=== PATIENT | male | born 1975 | race Caucasian/White ===

== ENCOUNTER 2019-06-13 11:04 | Emergency (ER) | payer BC, SELFPAY ==
--- NOTE | 2019-06-13 11:00 | ECG_ITS ---
APPROVED REPORT Exam: Resting ECG HR:76 bpm ECG Measurements Heart Rate 76 AXES MT 162 P 50 QRSd 76 QRS 24 QT 386 T 26 QTc 434 <Conclusion> Normal sinus rhythm Normal ECG Electronically signed by : Aditya Aguilera, 06/14/2019 08:05:49
[2019-06-13 11:05] VITALS: BP 132/97; PULSE 87; RESP 18; TEMP 36.8; O2SAT 99; BMI 30.5
--- NOTE | 2019-06-13 11:07 | HMH.EDGENADL ---
ED Disposition Clinical Impression: Chest pain Qualifiers: Chest pain type: unspecified Qualified Code(s): R07.9 - Chest pain, unspecified Disposition: Home, Self-Care Condition on Discharge: Good Instructions: DI for Chest Pain Additional Instructions: Additional instructions for CHEST PAIN: Follow-up with Dr. Walker in the office for further evaluation. Call tomorrow to arrange appointment. Return immediately if worsening chest pain, vomiting, shortness of breath, fever, coughing of blood. Referrals: Provider,MD Bren [Primary Care Provider] - Dario Walker MD [Staff Physician] - - Critical Care Critical Care Time: No Attestation: On , the high probability of a clinically significant, sudden or life threatening deterioration of the following system(s) required my full and direct attention, intervention and personal management. The time I documented below is in addition to time spent performing reported procedures but includes the following listed in this critical care notation. Medical Decision Making - Medical Records Medical records reviewed: Yes: I reviewed the patient's medical records. - Brain Inquiry Pt receiving controlled substance: No Vital Signs: 06/13/19 11:05 06/13/19 11:44 06/13/19 12:21 Temperature 98.3 F Temperature Source Oral Pulse Rate [Left Radial] 87 70 68 Respiratory Rate 18 Blood Pressure [Right Arm] 132/97 H 135/102 H 113/76 Blood Pressure Mean [Right Arm] 108 113 88 Blood Pressure Source [Right Arm] Automatic Cuff Automatic Cuff Blood Pressure Position [Right Arm] Sitting Sitting Sitting 02 Sat by Pulse Oximetry 99 96 98 Oxygen Delivery Method Room Air Room Air Room Air 06/13/19 14:26 06/13/19 14:30 Temperature Temperature Source Pulse Rate [Left Radial] 72 81 Respiratory Rate Blood Pressure [Right Arm] 122/74 118/72 Blood Pressure Mean [Right Arm] 90 87 Blood Pressure Source [Right Arm] Automatic Cuff Automatic Cuff Blood Pressure Position [Right Arm] Sitting Sitting 02 Sat by Pulse Oximetry 98 98 Oxygen Delivery Method Room Air Room Air - Lab Data Lab results reviewed: Yes: I reviewed the patient's lab results. Lab Results 06/13/19 11:05: WBC 5.4, RBC 4.51 L, Hgb 13.5 L, Hct 41.6 L, MCV 92.2, MCH 29.9, MCHC 32.4, RDW 13.8, Plt Count 243, MPV 7.7, Neut % (Auto) 70.8, Lymph % (Auto) 21.7, [place] % (Auto) 5.6, Eos % (Auto) 1.1, Baso % (Auto) 0.8, Neut # (Auto) 3.8, Lymph # (Auto) 1.2, Alpine # (Auto) 0.3, Eos # (Auto) 0.1, Baso # (Auto) 0.0 06/13/19 11:05: Sodium 138, Potassium 4.1, Chloride 100, Carbon Dioxide 29, Anion Gap 13.1, BUN 21 H, Creatinine 0.90, Estimated Creat Clear 150, Estimated GFR 91, Est GFR ( Amer) 110, Glucose 136 H, Calcium 9.9, Troponin I < 0.01 06/13/19 11:05: D-Dimer < 100 06/13/19 14:15: Troponin I < 0.01 Result diagrams: 06/13/19 11:05 06/13/19 11:05 Orders (Tests/Meds): ORDERS Category Date Time Status Troponin I Q3H Lab 06/13/19 17:15 Ordered - Radiology Data #1 Image(s): Chest Image Reviewed: Yes I reviewed the patient's radiology image, Yes I have reviewed radiologist's interpretation Preliminary Findings: Normal/NAD PROCEDURE: XR CHEST 2V CLINICAL HISTORY: chest pain COMPARISON: [id number] XR ribs RT min 3V w CXR1V from 10/09/2017 CXR1VP XR chest portable from 10/09/[address] angio chest from 10/09/2017 FINDINGS: The cardiomediastinal silhouette and pulmonary vascularity are within normal limits. The lungs are clear without infiltrates, suspicious nodules, or pleural effusions. No acute bony abnormalities. IMPRESSION: No acute findings. Dictated by: Artie Angeles MD 06/13/2019 11:59 Electronically signed by Artie Angeles MD in [place] 06/13/2019 11:59 - ECG Data Tracing #1 EKG interpreted by Santosh Sargent MD: Rhythm: sinus Rate: 76 [place]: normal Ectopy: none Conduction: normal ST Segment Changes: none T Wave Changes: none Q Waves: none N
[2019-06-13 11:09] VITALS: BMI 30.5
--- NOTE | 2019-06-13 11:10 | XR_ITS ---
PROCEDURE: XR CHEST 2V CLINICAL HISTORY: chest pain COMPARISON: [id number] XR ribs RT min 3V w CXR1V from 10/09/2017 CXR1VP XR chest portable from 10/09/[address] angio chest from 10/09/2017 FINDINGS: The cardiomediastinal silhouette and pulmonary vascularity are within normal limits. The lungs are clear without infiltrates, suspicious nodules, or pleural effusions. No acute bony abnormalities. IMPRESSION: No acute findings. Dictated by: Artie Angeles MD 06/13/2019 11:59 Electronically signed by Artie Angeles MD in [place] 06/13/2019 11:59
--- NOTE | 2019-06-13 11:23 | PC.NURSE ---
Pt returned from rad.
[2019-06-13 11:26] LABS: Chloride 100 mmol/L (98-107)
[2019-06-13 11:27] LABS: Basophils % 0.8 % (0.1-2.0); Eosinophils # 0.1 K/mm3 (0.0-0.4); Eosinophils % 1.1 % (0.1-12.0); Hematocrit 41.6 % (42.0-52.0); Hemoglobin 13.5 g/dL (14.1-18.0); Lymphocytes # 1.2 K/mm3 (0.7-4.5); Lymphocytes % 21.7 % (10-50); Mean Corpuscular HGB Conc 32.4 g/dL (31.8-35.4); Mean Corpuscular Hemoglobin 29.9 pg (27.0-31.2); Mean Corpuscular Volume 92.2 fl (80-94); Mean Platelet Volume 7.7 fl (7.4-10.4); Monocytes # 0.3 K/mm3 (0.1-1.0); Monocytes % 5.6 % (1.7-9.3); Neutrophils # 3.8 K/mm3 (1.8-7.8); Neutrophils % 70.8 % (37.0-80.0); Platelet Count 243 K/mm3 (142-424); Potassium 4.1 mmoL/L (3.5-5.1); Red Blood Count 4.51 M/mm3 (4.60-6.20); Red Cell Distribution Width 13.8 % (11.5-17.5); Sodium 138 mmol/L (136-145); White Blood Count 5.4 K/mm3 (4.8-10.8)
[2019-06-13 11:29] LABS: Blood Urea Nitrogen 21 mg/dl (9-20); Creatinine Clearance Estimated 150 mL/min (50-200); Estimated Glomerular Filt Rate 91 ml/min (>60); GFR (African American) 110 ML/MIN (>60)
[2019-06-13 11:30] LABS: Anion Gap 13.1 mEq/L (5-15); Calcium 9.9 mg/dl (8.4-10.2); Carbon Dioxide 29 mmol/L (22.0-30.0); Glucose 136 mg/dl (74-100)
[2019-06-13 11:43] LABS: Troponin I < 0.01 ng/ml (0.00-0.034)
[2019-06-13 11:44] VITALS: BP 135/102; PULSE 70; O2SAT 96
[2019-06-13 12:17] LABS: D-Dimer < 100 ng/mL (0-400)
[2019-06-13 12:21] VITALS: BP 113/76; PULSE 68; O2SAT 98
--- NOTE | 2019-06-13 12:31 | PC.NURSE ---
Pt sitting up eating at this time
--- NOTE | 2019-06-13 12:48 | PC.NURSE ---
Pt up to restroom
[2019-06-13 14:26] VITALS: BP 122/74; PULSE 72; O2SAT 98
[2019-06-13 14:30] VITALS: BP 118/72; PULSE 81; O2SAT 98
[2019-06-13 14:59] LABS: Troponin I < 0.01 ng/ml (0.00-0.034)
[2019-06-13 15:15] VITALS: BP 127/54; PULSE 68; RESP 16; TEMP 36.6; O2SAT 98
== END 2019-06-13 15:16 | disposition home or self-care (01) ==
PROVIDERS: Emergency Provider Emergency Medicine
DX: R07.9 Chest pain, unspecified (principal); Z86.718 Personal history of other venous thrombosis and embolism; I10 Essential (primary) hypertension; Z79.899 Other long term (current) drug therapy; Z96.641 Presence of right artificial hip joint; Z96.642 Presence of left artificial hip joint
CPT/HCPCS: 71046; 80048; 84484; 85025; 85378; 93005; 99284

== ENCOUNTER → 2019-06-27 10:18 | Outpatient (CLI) | payer BC, SELFPAY ==
--- NOTE | 2019-06-27 | CA_ITS ---
APPROVED REPORT Exam: Exercise Treadmill Technologist: Pearl Stevenson, Ht: 6 ft 0 in Wt: 220 lbs BSA: 2.22 m2 HR: 70 bpm BP: 134/86 mmHg Rhythm: NSR Medical History Medical History: HTN Medications: Lisinopril,,,,, Asa,,,,, Trazadone,,,,, KCL,,,,, CitrIZINE,,,,, LoraDATINE,,,,, BuPenophine,,,,, NaloXEGOL,,,,, Allergies: No known drug allergies Cardiac Risk Factors: HTN Stress Test Details Test: Vu HR Resting HR: 99 bpm Max Heart Rate (APMHR): 175 bpm Max HR Achieved: 174 bpm Target HR (85% APMHR): 148 bpm % of APMHR: 99 Recovery HR: 115 bpm BP Resting BP: 134.0/86.0 mmHg Max BP: 177.0/106.0 mmHg Recovery BP: 177.0/106.0 mmHg ECG Resting ECG: NSR Clinical Reason for Termination: Dyspnea Exercise duration: 09:07 min Highest Stage Achieved: Exercise capacity: 10.1 METs Stress ECG Conclusion PATIENT WALKED 9:00 ON VU PROTOCOL WITH MAX HEART RATE 173 BPM WHICH IS 116% OF PM FOR AGE. METS = 10.1. TEST STOPPED DUE TO SOA AND HIP PAIN. NO CHEST PAIN. NO ARRHYTHMIAS/ECTOPY. <1.5MM ST SEGMENT CHANGES. NEGATIVE STRESS Test Summary REST . . . . . . . Standing REST . . . . . . . Sitting REST . . . . . . . Sitting REST 09:27 0.0 0.0 99 . 134/ 86 . . Stage 1 01:00 10.0 1.7 111 . . . . Stage 1 02:00 10.0 1.7 116 . . . . Stage 1 03:00 10.0 1.7 117 . 152/ 90 . . Stage 2 01:00 12.0 2.5 134 . . . . Stage 2 02:00 12.0 2.5 138 . . . . Stage 2 03:00 12.0 2.5 146 . 160/ 92 . . Stage 3 . . . . . . . Cardiolite injected Stage 3 01:00 14.0 3.4 164 . . . . Stage 3 02:00 14.0 3.4 167 . . . . Stage 3 03:00 14.0 3.4 173 . . . . Stage 4 00:07 16.0 4.2 174 . . . Stop exercise at 09:07 RECOVERY 01:00 0.0 0.0 144 . . . . RECOVERY 02:00 0.0 0.0 119 . . . . RECOVERY 03:00 0.0 0.0 108 . 177/106 . . RECOVERY 04:00 0.0 0.0 108 . 151/100 . . RECOVERY 05:00 0.0 0.0 102 . 127/ 93 . . RECOVERY 05:15 0.0 0.0 104 . 127/ 93 . . Electronically signed by : Ubaldo Davis, 06/27/2019 14:29:23
--- NOTE | 2019-06-27 10:20 | CA_ITS ---
APPROVED REPORT EXAM: Comprehensive 2D, Doppler, and color-flow Echocardiogram Vice President Payment: Heena Nascimento CRT Ht: 6 ft 0 in Wt: 225lbs BSA: 2.24 BP: 131/99 mmHg Indications: CP, edema, sob, PAD, DVT, Alcoholism 2D Dimensions LVOT 2.04 cm (M/F) 1.5-2.5 M-Mode Dimensions RVDd 2.60 cm (0.9-2.6) LVDd 5.45 cm (3.5-5.7) LVDs 2.95 cm (3.5-5.7) IVSd 1.71 cm (0.6-1.1) PWd 0.43 cm (0.6-1.1) EF (Teich) 76.70% FS 45.90% EDV (Teich) 144.40 mL ESV (Teich) 33.60 mL LV Diastology E/A Ratio 1.10 Mitral Valve MV A Velocity 79.00 (40-130 cm/s) Left Ventricle Left atrium is mildly enlarged, left ventricle is normal size, mild concentric left ventricular hypertrophy, visually estimated ejection fraction 55% with no regional wall motion abnormality, grade 1 diastolic dysfunction seen without tissue Doppler evidence of raise left atrial pressure. Right Ventricle Right atrium is mildly enlarged, right ventricle is normal size and contractility. Aortic Valve Aortic valve is minimally thickened and fibrosed, there is no aortic stenosis aortic insufficiency. Mitral Valve Mitral valve is grossly normal, there is mild mitral regurgitation. Tricuspid Valve Tricuspid valve grossly normal, there is mild tricuspid regurgitation. Pulmonic Valve Pulmonic valve is poorly visualized. Great Vessels Aortic root is normal size. Pericardium No significant pericardial effusion noted. Conclusion 1. Mild biatrial enlargement, normal left ventricular size, mild concentric left ventricular hypertrophy, visually estimated ejection fraction 55% with no regional wall motion abnormality, grade 1 diastolic dysfunction seen without tissue Doppler evidence of raise left atrial pressure. 2. Mild mitral and tricuspid regurgitation. 3. No significant pericardial effusion noted. Electronically signed by : Ubaldo Davis, 06/27/2019 12:12:23
--- NOTE | 2019-06-27 11:31 | NM_ITS ---
APPROVED REPORT Exam: Nuclear Stress Test Indication: HTN, C.P., SYNCOPE, FATIGUE Patient Location: Outpatient Stress Tech: Kylah Elva [place] Tech:Tabby Mcdonald TUCKER RT (R)(N)(M) Ht: 6 ft 0 in Wt: 220 lbs HR: 70 bpm BP: 134/86 mmHg BSA: 2.22 m2 History: HTN, C.P., SYNCOPE, FATIGUE Procedure: Patient exercised on Vu protocol 9:00 minutes and sec, resting heart rate 70 bpm, resting blood pressure 134/86 mmHg, with exercise maximum heart rate achived was 173 bpm which is Greater than 85 % of the maximum predicted heart rate and blood pressure was 177/106 mmHg. Patient denied any complaint of chest pain. Patient has Good exercise capacity, achieved 10.1 METs of workload on treadmill, the blood pressure response to exercise was Hypertensive. Electrocardiogram Resting electrocardiogram showed sinus rhythm, with exercise there is less than 1.[address] segment depression noted from the baseline EKG. The EKG portion of the exercise Myoview is negative for ischemia. Cardiac Stress and Resting SPECT Images: Cardiac Stress and Resting SPECT images were obtained using technetium 99m Myoview 31.3 mCi stress and 10.42 mCi at rest. Gated SPECT for analysis of segmental wall motion and calculation of the ejection fraction also done. Cardiac stress and resting SPECT images show uniform myocardial activity without segmental perfusion abnormality, computer derived ejection fraction is 60% with no regional wall motion abnormality, right ventricle is normal size and contractility. Conclusion: 1. The EKG portion of the exercise Myoview is negative for ischemia, patient has good exercise capacity achieved 10.1 mets of workload on treadmill, the blood pressure response to exercise was hypertensive, there was no exercise-induced chest discomfort. 2. No scintigraphic evidence of reversible ischemia seen, computer derived ejection fraction is 60% with no regional wall motion abnormality, right ventricle is normal size and contractility. 3. Normal exercise Myoview study except for hypertensive blood pressure response with exercise. Electronically signed by : Ubaldo Davis, 06/27/2019 14:28:50
== END ==
PROVIDERS: PCP Internal Medicine; Visit Provider Urology
DX: R07.9 Chest pain, unspecified (principal); R06.00 Dyspnea, unspecified; I73.9 Peripheral vascular disease, unspecified; F10.20 Alcohol dependence, uncomplicated; Z86.718 Personal history of other venous thrombosis and embolism
CPT/HCPCS: 78452; 93017; 93306; A9502

== ENCOUNTER 2019-11-15 07:22 | Emergency (ER) | payer BC, SELFPAY ==
[2019-11-15 07:23] VITALS: BP 146/96; PULSE 105; RESP 20; TEMP 39.5; O2SAT 98; BMI 31.1
--- NOTE | 2019-11-15 07:42 | XR_ITS ---
PROCEDURE: XR CHEST 2V CLINICAL HISTORY: COUGH, SOB COMPARISON: CR [id number] XR ribs RT min 3V w CXR1V from 10/09/2017 CR CXR1VP XR chest portable from 10/09/[address] angio chest from 10/09/2017 CR XR CHEST 2V from 06/13/2019 FINDINGS: The cardiomediastinal silhouette and pulmonary vascularity are within normal limits. The left hilum is slightly prominent as noted previously likely due to several small nodes. The lungs are clear without infiltrates, suspicious nodules, or pleural effusions. No acute bony abnormalities. IMPRESSION: No acute findings. Dictated by: Dr. Patrick Bullard MD 11/15/2019 08:07 Dr. Patrick Bullard MD in [place] 11/15/2019 08:07
[2019-11-15 08:07] LABS: Strep Scrn Group A (Rapid) Negative (Negative)
--- NOTE | 2019-11-15 08:21 | HMH.EDFEV ---
ED Disposition Clinical Impression: Acute viral syndrome Disposition: Home, Self-Care Condition on Discharge: Good Instructions: DI for Fever (Symptom) -- Adult Prescriptions: Ibuprofen [Ibuprofen 800mg Tablet] 800 mg PO TIDP PRN #20 tab PRN Reason: Moderate Pain Transmission Status: Pending to [facility] Referrals: Farrukh Flower MD [Emergency Provider] - - Critical Care Critical Care Time: No Attestation: On 11/15/19, the high probability of a clinically significant, sudden or life threatening deterioration of the following system(s) required my full and direct attention, intervention and personal management. The time I documented below is in addition to time spent performing reported procedures but includes the following listed in this critical care notation. Medical Decision Making - Medical Records Medical records reviewed: Yes: I reviewed the patient's medical records. - Brain Inquiry Pt receiving controlled substance: No Vital Signs: 11/15/19 07:23 Temperature 103.1 F H Temperature Source Oral Pulse Rate [Radial] 105 H Respiratory Rate 20 Blood Pressure [Right Arm] 146/96 H Blood Pressure Mean [Right Arm] 112 Blood Pressure Position [Right Arm] Sitting 02 Sat by Pulse Oximetry 98 Oxygen Delivery Method Room Air - Lab Data Lab Results 11/15/19 07:50: Influenza Type A Ag Negative, Influenza Type B Ag Negative 11/15/19 07:50: Group A Strep Rapid Negative Orders (Tests/Meds): ED MEDICATIONS Discontinued Medications Generic Name Dose Route Start Last Admin Trade Name Freq PRN Reason Stop Dose Admin Acetaminophen 1,000 mg 11/15/19 07:41 11/15/19 07:48 Tylenol 500mg Tablet PO 11/15/19 07:42 1,000 mg ONCE ONE Administration Ketorolac Tromethamine 60 mg 11/15/19 07:41 11/15/19 07:47 Toradol 60mg/2ml Vial IM 11/15/19 07:42 60 mg ONCE ONE Administration ORDERS Category Date Time Status Strep Screen Confirmation Stat Micro 11/15/19 07:50 Received - Radiology Data #1 Image(s): Chest Image Reviewed: Yes I reviewed the patient's radiology results, Yes I have reviewed radiologist's interpretation Preliminary Findings: Normal/NAD - Reevaluation(s) Time: 08:27 Reevaluation #1: On reevaluation, patient's feeling better. His aches and pains improved. He was negative for both influenza and strep. I did give the patient strict isolation precautions given his fever and pending coronavirus test. He was also given strict return precautions. Needs follow-up with his PCP in 24 hours. Verbalized understanding. Medical Decision Narrative: This is a 44-year-old male presented to the emergency department with fever and chills. Patient symptoms are consistent with viral syndrome. Patient has had some sick contacts. He states that he was tested for aparicio virus yesterday, however results are pending. On examination does not have any significant focal findings. Work-up will be initiated. There is no evidence of meningismus or findings concerning for meningitis. Fever HPI - General Chief Complaint: Fever Stated Complaint: fever,headache Time Seen by Provider: 11/15/19 08:00 Mode of Arrival: Ambulatory Limitations: No Limitations Description of Symptoms (Recalled from ER Triage Doc. by RN): TO ED PER [facility]T CAR WITH C/O HEADACHE, FEVER, CHILLS, COUGH, GENERALIZED ACHES STARTING . PT STATES HAD COVID TEST YESTERDAY AT HEALTH DEPT RESULTS ARE NOT BACK. PT DENIES NAUSEA, VOMITING, SOB, SORETHROAT. PT STATES LAST DOSE OF IBUPROFEN WAS YESTERDAY - History of Present Illness HPI Narrative: This is a 44-year-old male presented to the emergency department with fevers, body aches, chills. Patient states that he has had this for the last 3 days. He has had some sick contacts with people he knows. Patient is complaining of full body aches, myalgias as well as fevers or chills. He checked his temperature this morning was found to be high.
[2019-11-15 08:38] VITALS: BP 135/88; PULSE 92; RESP 16; TEMP 37.7; O2SAT 98
== END 2019-11-15 08:40 | disposition home or self-care (01) ==
PROVIDERS: Emergency Provider Emergency Medicine
DX: B34.9 Viral infection, unspecified (principal); I10 Essential (primary) hypertension
CPT/HCPCS: 71046; 87275; 87276; 87430; 96372; 99283

== ENCOUNTER 2019-11-16 09:35 | Emergency (ER) | payer BC, SELFPAY ==
[2019-11-16 09:35] VITALS: BP 151/102; PULSE 108; RESP 21; TEMP 39.2; O2SAT 95; BMI 31.1
--- NOTE | 2019-11-16 09:46 | ECG_ITS ---
APPROVED REPORT Exam: Resting ECG HR:108 bpm ECG Measurements Heart Rate 108 AXES NV 140 P 53 QRSd 88 QRS 22 QT 336 T 25 QTc 450 <Conclusion> Sinus tachycardia Otherwise normal ECG Electronically signed by : Eduardo Plasencia, 11/18/2019 08:55:54
--- NOTE | 2019-11-16 09:46 | XR_ITS ---
PROCEDURE: XR CHEST PORTABLE Referring Doctor: Keanu Castro Patient Age:44Y CLINICAL HISTORY: soa dyspnea. Chest tightness Covidt test not yet back COMPARISON: CR [id number] XR ribs RT min 3V w CXR1V from 10/09/[address] angio chest from 10/09/2017 CR XR CHEST 2V from 06/13/2019 CR XR CHEST 2V from 11/15/2019 FINDINGS: Today's AP portable upright chest is compared to yesterday's CXR. Right lung remains stable clear well expanded and unremarkable Left chest.. Suggestion of slight additional density projected over the left fan, particularly notable left infrahilar region. This is similar to yesterday's study question there could be slight increased density posteriorly left mid lung. Appears to be slightly increased density projected over left fan on today's portable AP CXR versus May [address] chest from 2018 unremarkable on left However would consider a CT chest with contrast with the subtle findings and particularly if symptoms persist There is mild cardiomegaly. Pulmonary vascularity appears normal to upper normal. Chest wall unremarkable IMPRESSION: .. Question/suggestion of subtle additional density projected over left fan compared to study older studies prior to this year . Consider a CT chest with contrast with the subtle findings and particularly if symptoms persist. Dictated by: Antelmo Shea MD 11/16/2019 12:29 Antelmo Shea MD in [place] 11/16/2019 12:29
--- NOTE | 2019-11-16 09:51 | HMH.EDGENADL ---
ED Disposition Clinical Impression: Viral infection Chest pain Qualifiers: Chest pain type: unspecified Qualified Code(s): R07.9 - Chest pain, unspecified Disposition: Home, Self-Care Condition on Discharge: Good Additional Instructions: Tylenol for fever. Follow-up with your PCP. If you have any new, changing, worsening, or concerning symptoms, come back to the emergency department. You should self quarantine until you get the results of your swab. Referrals: PCP,No [Primary Care Provider] - Time of Disposition: 09:54 - Critical Care Critical Care Time: No Attestation: On 11/16/19, the high probability of a clinically significant, sudden or life threatening deterioration of the following system(s) required my full and direct attention, intervention and personal management. The time I documented below is in addition to time spent performing reported procedures but includes the following listed in this critical care notation. Medical Decision Making - Medical Records Medical records reviewed: Yes: I reviewed the patient's medical records. MR Comment: 44-year-old male presents emergency department with chest tightness and pain. He is also had cough, fever, chills. He has fever on arrival here and is little tachycardic. He is in no respiratory distress on my evaluation is 96% on room air. He does not appear toxic. His coronavirus swab will likely result in the next day or so. I feel like this will likely be positive given his overall symptoms. Given he is complaining of chest pain and tightness, will check initial troponin and EKG. We will also treat his fever with Tylenol and reassess. On reassessment, patient remains well. Initial troponin is normal and EKG showing sinus tach rhythm, no concerning ST changes, intervals appear normal. He is feeling better after treatment here and continues to be breathing comfortably on room air. I do not think a second troponin is necessary given the length of his symptoms. And this is likely viral in etiology. He was given strict return precautions and discharge instructions and verbalized understanding and agreement with the plan. Safe to discharge. - Brain Inquiry Pt receiving controlled substance: No Vital Signs: 11/16/19 09:35 11/16/19 09:56 11/16/19 10:08 Temperature 102.6 F H Temperature Source Oral Pulse Rate [Right] 108 H 115 H 113 H Respiratory Rate 21 22 Blood Pressure [Right Arm] 151/102 H 151/102 H 119/94 H Blood Pressure Mean [Right Arm] 118 118 102 Blood Pressure Source [Right Arm] Automatic Cuff Automatic Cuff Blood Pressure Position [Right Arm] Sitting Sitting 02 Sat by Pulse Oximetry 95 93 L 95 Oxygen Delivery Method Room Air Room Air 11/16/19 10:32 Temperature Temperature Source Pulse Rate [Right] 116 H Respiratory Rate Blood Pressure [Right Arm] 133/84 Blood Pressure Mean [Right Arm] 100 Blood Pressure Source [Right Arm] Automatic Cuff Blood Pressure Position [Right Arm] Sitting 02 Sat by Pulse Oximetry 96 Oxygen Delivery Method Room Air - Lab Data Lab Results 11/16/19 10:30: WBC 6.2, RBC 3.98 L, Hgb 12.7 L, Hct 37.6 L, MCV 94.4 H, MCH 31.8 H, MCHC 33.7, RDW 13.3, Plt Count 208, MPV 7.2 L, Neut % (Auto) 83.8 H, Lymph % (Auto) 9.5 L, Long % (Auto) 5.8, Eos % (Auto) 0.4, Baso % (Auto) 0.4, Neut # (Auto) 5.2, Lymph # (Auto) 0.6 L, Long # (Auto) 0.4, Eos # (Auto) 0.0, Baso # (Auto) 0.0 11/16/19 10:30: Sodium 141, Potassium 4.1, Chloride 103, Carbon Dioxide 32 H, Anion Gap 10.1, BUN 14, Creatinine 0.80, Estimated Creat Clear 170, Estimated GFR 104, Est GFR ( Amer) 126, Glucose 119 H, Calcium 9.1, Total Bilirubin 0.5, AST 27, ALT 15, Alkaline Phosphatase 73, Troponin I < 0.01, Total Protein 7.1, Albumin 3.6, Globulin 3.5 H, Albumin/Globulin Ratio 1.0 L Result diagrams: 11/16/19 10:30 11/16/19 10:30 Orders (Tests/Meds): ED MEDICATIONS Generic Name Dose Route Start Last Admin Trade Name Freq PRN Reason Stop Dose Ad
[2019-11-16 09:56] VITALS: BP 151/102; PULSE 115; O2SAT 93
[2019-11-16 10:08] VITALS: BP 119/94; PULSE 113; PULSE 114; RESP 22; O2SAT 95
[2019-11-16 10:32] VITALS: BP 133/84; PULSE 116; O2SAT 96
[2019-11-16 10:36] LABS: Basophils % 0.4 % (0.1-2.0); Eosinophils % 0.4 % (0.1-12.0); Hematocrit 37.6 % (42.0-52.0); Hemoglobin 12.7 g/dL (14.1-18.0); Lymphocytes # 0.6 K/mm3 (0.7-4.5); Lymphocytes % 9.5 % (10-50); Mean Corpuscular HGB Conc 33.7 g/dL (31.8-35.4); Mean Corpuscular Hemoglobin 31.8 pg (27.0-31.2); Mean Corpuscular Volume 94.4 fl (80-94); Mean Platelet Volume 7.2 fl (7.4-10.4); Monocytes # 0.4 K/mm3 (0.1-1.0); Monocytes % 5.8 % (1.7-9.3); Neutrophils # 5.2 K/mm3 (1.8-7.8); Neutrophils % 83.8 % (37.0-80.0); Platelet Count 208 K/mm3 (142-424); Red Blood Count 3.98 M/mm3 (4.60-6.20); Red Cell Distribution Width 13.3 % (11.5-17.5); White Blood Count 6.2 K/mm3 (4.8-10.8)
[2019-11-16 10:42] LABS: Chloride 103 mmol/L (98-107); Sodium 141 mmol/L (136-145)
[2019-11-16 10:43] LABS: Potassium 4.1 mmoL/L (3.5-5.1)
[2019-11-16 10:45] LABS: Alanine Aminotransferase 15 U/L (12-78); Alkaline Phosphatase 73 U/L (38-126); Aspartate Amino Transferase 27 U/L (17-59); Bilirubin,Total 0.5 mg/dl (0.2-1.3); Blood Urea Nitrogen 14 mg/dl (9-20); Creatinine Clearance Estimated 170 mL/min (50-200); Estimated Glomerular Filt Rate 104 ml/min (>60); GFR (African American) 126 ML/MIN (>60)
[2019-11-16 10:46] LABS: Albumin Level 3.6 g/dl (3.5-5.0); Anion Gap 10.1 mEq/L (5-15); Calcium 9.1 mg/dl (8.4-10.2); Carbon Dioxide 32 mmol/L (22.0-30.0); Globulin 3.5 g/dL (1.3-3.2); Glucose 119 mg/dl (74-100); Total Protein,Serum 7.1 g/dl (6.3-8.2)
[2019-11-16 10:58] LABS: Troponin I < 0.01 ng/ml (0.00-0.034)
--- NOTE | 2019-11-16 11:01 | PC.NURSE ---
Pt placed on isolation precautions upon arrival.
[2019-11-16 11:38] LABS: Coronavirus 19 IgG Antibody Negative (Negative); Coronavirus 19 IgM Antibody Negative (Negative)
[2019-11-16 11:45] VITALS: BP 132/87; PULSE 110; RESP 22; TEMP 37.5; O2SAT 95
== END 2019-11-16 11:45 | disposition home or self-care (01) ==
PROVIDERS: Emergency Provider Emergency Medicine
DX: R07.9 Chest pain, unspecified (principal); B34.9 Viral infection, unspecified; I10 Essential (primary) hypertension; Z20.828 Contact with and (suspected) exposure to other viral communicable diseases; Z79.899 Other long term (current) drug therapy; Z96.641 Presence of right artificial hip joint; Z96.642 Presence of left artificial hip joint; F17.290 Nicotine dependence, other tobacco product, uncomplicated; Z86.718 Personal history of other venous thrombosis and embolism
CPT/HCPCS: 71045; 80053; 84484; 85025; 86328; 96365; 99284

== ENCOUNTER 2019-11-19 20:20 | Emergency (ER) | payer BC, SELFPAY ==
[2019-11-19 20:13] VITALS: BP 142/108; PULSE 108; RESP 18; TEMP 37.4; O2SAT 95; BMI 31.8
[2019-11-19 20:35] LABS: Basophils # 0.1 K/mm3 (0-0.2); Basophils % 0.7 % (0.1-2.0); Chloride 103 mmol/L (98-107); Eosinophils # 0.1 K/mm3 (0.0-0.4); Eosinophils % 1.2 % (0.1-12.0); Hematocrit 37.2 % (42.0-52.0); Hemoglobin 12.2 g/dL (14.1-18.0); Lymphocytes # 1.2 K/mm3 (0.7-4.5); Lymphocytes % 11.5 % (10-50); Mean Corpuscular HGB Conc 32.9 g/dL (31.8-35.4); Mean Corpuscular Hemoglobin 31.1 pg (27.0-31.2); Mean Corpuscular Volume 94.4 fl (80-94); Mean Platelet Volume 7.8 fl (7.4-10.4); Monocytes # 0.6 K/mm3 (0.1-1.0); Monocytes % 5.7 % (1.7-9.3); Neutrophils # 8.1 K/mm3 (1.8-7.8); Neutrophils % 80.9 % (37.0-80.0); Platelet Count 333 K/mm3 (142-424); Red Blood Count 3.94 M/mm3 (4.60-6.20); Red Cell Distribution Width 13.4 % (11.5-17.5); Sodium 143 mmol/L (136-145)
[2019-11-19 20:36] LABS: Potassium 3.7 mmoL/L (3.5-5.1)
--- NOTE | 2019-11-19 20:36 | HMH.EDNVD ---
ED Disposition Clinical Impression: Elevated erythrocyte sedimentation rate, Elevated C-reactive protein (CRP) Nausea & vomiting Qualifiers: Vomiting type: unspecified Vomiting Intractability: unspecified Qualified Code(s): R11.2 - Nausea with vomiting, unspecified Alcohol intoxication Qualifiers: Complication of substance-induced condition: with unspecified complication Qualified Code(s): F10.929 - Alcohol use, unspecified with intoxication, unspecified Disposition: Left Against Medical Advice Condition on Discharge: Fair Instructions: DI for Nausea -- Adult Additional Instructions: left prior to completion of treatment Referrals: Provider,Referral, [Primary Care Provider] - - Critical Care Critical Care Time: No Attestation: On 11/19/19, the high probability of a clinically significant, sudden or life threatening deterioration of the following system(s) required my full and direct attention, intervention and personal management. The time I documented below is in addition to time spent performing reported procedures but includes the following listed in this critical care notation. Medical Decision Making - Medical Records Medical records reviewed: Yes: I reviewed the patient's medical records. - Brain Inquiry Pt receiving controlled substance: No Vital Signs: 11/19/19 20:13 11/19/19 20:38 11/19/19 21:48 Temperature 99.3 F 0 F L Temperature Source Oral Pulse Rate 0 L Pulse Rate [Right] 108 H 94 H Respiratory Rate 18 20 0 L Blood Pressure 0/0 L Blood Pressure [Right Arm] 142/108 H 148/100 H Blood Pressure Mean [Right Arm] 119 116 Blood Pressure Source [Right Arm] Automatic Cuff Automatic Cuff Blood Pressure Position [Right Arm] Sitting Supine 02 Sat by Pulse Oximetry 95 95 Oxygen Delivery Method Room Air Room Air - Lab Data Lab results reviewed: Yes: I reviewed the patient's lab results. Lab Results 11/19/19 20:20: WBC 10.0, RBC 3.94 L, Hgb 12.2 L, Hct 37.2 L, MCV 94.4 H, MCH 31.1, MCHC 32.9, RDW 13.4, Plt Count 333 D, MPV 7.8, Neut % (Auto) 80.9 H, Lymph % (Auto) 11.5, [place] % (Auto) 5.7, Eos % (Auto) 1.2, Baso % (Auto) 0.7, Neut # (Auto) 8.1 H, Lymph # (Auto) 1.2, [place] # (Auto) 0.6, Eos # (Auto) 0.1, Baso # (Auto) 0.1, ESR > 140 H 11/19/19 20:20: Sodium 143, Potassium 3.7, Chloride 103, Carbon Dioxide 31 H, Anion Gap 12.7, BUN 9, Creatinine 0.80, Estimated Creat Clear 174, Estimated GFR 104, Est GFR ( Amer) 126, Glucose 122 H, Calcium 9.3, Total Bilirubin 0.3, AST 36, ALT 21, Alkaline Phosphatase 112, C-Reactive Protein 427.3 H, Total Protein 7.6, Albumin 3.6, Globulin 4.0 H, Albumin/Globulin Ratio 0.9 L, Lipase 84 11/19/19 20:20: Plasma/Serum Alcohol 151 H 11/19/19 20:22: Urine Color Yellow, Urine Appearance Clear, Urine pH 7.0, Ur Specific [place] 1.020, Urine Protein 1+, Urine Glucose (UA) Negative, Urine Ketones Negative, Urine Blood 1+, Urine Nitrate Negative, Urine Bilirubin Negative, Urine Urobilinogen 1.0, Ur Leukocyte Esterase Negative, Urine RBC Occasional, Urine WBC Occasional, Urine Bacteria Trace 11/19/19 20:36: Urine Opiates Screen Negative, Urine Methadone Screen Negative, Ur Barbituates Screen Negative, Ur Phencyclidine Scrn Negative, Ur Amphetamines Screen Negative, U Benzodiazepines Scrn Negative, Urine Cocaine Screen Negative, U Marijuana (THC) Screen Negative Result diagrams: 11/19/19 20:20 11/19/19 20:20 Orders (Tests/Meds): ED MEDICATIONS Discontinued Medications Generic Name Dose Route Start Last Admin Trade Name Stephania PRN Reason Stop Dose Admin Acetaminophen 1,000 mg 11/19/19 20:27 11/19/19 20:32 Tylenol 500mg Tablet PO 11/19/19 20:28 1,000 mg ONCE ONE Administration Sodium Chloride 1,000 mls @ 999 mls/hr 11/19/19 20:30 11/19/19 20:38 Sod Chlor 0.9% 1000ml Bag IV 11/19/19 21:30 999 mls/hr .Q1H1M LAINE Administration Ondansetron HCl 4 mg 11/19/19 20:27 11/19/19 20:31 Zofran 4mg/2ml Vial IV 11/19/19 20:28 4 mg
[2019-11-19 20:38] VITALS: BP 148/100; PULSE 94; RESP 20; O2SAT 95
[2019-11-19 20:38] LABS: Alanine Aminotransferase 21 U/L (12-78); Albumin Level 3.6 g/dl (3.5-5.0); Albumin/Globulin Ratio 0.9 (1.1-1.8); Alkaline Phosphatase 112 U/L (38-126); Anion Gap 12.7 mEq/L (5-15); Aspartate Amino Transferase 36 U/L (17-59); Bilirubin,Total 0.3 mg/dl (0.2-1.3); Blood Urea Nitrogen 9 mg/dl (9-20); Calcium 9.3 mg/dl (8.4-10.2); Carbon Dioxide 31 mmol/L (22.0-30.0); Creatinine Clearance Estimated 174 mL/min (50-200); Estimated Glomerular Filt Rate 104 ml/min (>60); GFR (African American) 126 ML/MIN (>60); Glucose 122 mg/dl (74-100); Lipase 84 U/L (23-300); Total Protein,Serum 7.6 g/dl (6.3-8.2)
[2019-11-19 20:44] LABS: Microscopic, Urine URINE MICROSCOPIC (MICROSCOPIC)
[2019-11-19 20:50] LABS: Appearance,Urine CLEAR (Clear); Bilirubin,Urine Negative (Negative); Blood, Urine 1+ (Negative); Color,Urine YELLOW (Yellow); Glucose,Urine (UA) Negative (Negative); Ketones,Urine Negative (Negative); Leukocyte Esterase,Urine Negative (Negative); Nitrate,Urine Negative (Negative); Protein,Urine 1+ (Negative)
[2019-11-19 20:59] LABS: Bacteria,Urine Trace /lpf; RBC,Urine Occasional #/hpf (0-3); WBC,Urine Occasional #/hpf (0-3)
[2019-11-19 21:00] LABS: Amphetamine/Metha Screen,Urine Negative ng/ml (<1000)
[2019-11-19 21:00] LABS: C-Reactive Protein 427.3 mg/L (0-4)
[2019-11-19 21:01] LABS: Barbiturates Screen,Urine Negative ng/ml (<200)
[2019-11-19 21:02] LABS: Benzodiazepines Screen,Urine Negative ng/ml (<200); Cannabinoid Screen,Urine Negative ng/ml (<50)
[2019-11-19 21:03] LABS: Cocaine Screen,Urine Negative ng/ml (<300); Methadone Screen,Urine Negative ng/ml (<300)
[2019-11-19 21:04] LABS: Opiate Screen,Urine Negative ng/ml (<300)
[2019-11-19 21:05] LABS: Phencyclidine Screen,Urine Negative ng/ml (<25)
[2019-11-19 21:23] LABS: Erythrocyte Sedimentation Rate > 140 mm/hr (0-15)
[2019-11-19 21:28] LABS: Ethyl Alcohol 151 mg/dl (0-10)
--- NOTE | 2019-11-19 21:34 | PC.NURSE ---
Pt yelling out cursing at staff at this time. Pt yelling I want a damn glass of water This place is bullshit You all are useless When entering the room to see what pt needed, pt asked for a glass of water. Stated to patient that he was more than welcome to have a glass of water after his ordered radiology scan and that water was contraindicated for the scan. Pt started yelling at staff saying I dont want a fucking chest x-ray. I want water. Pt was informed x3 previously that the language, yelling and behavior was not tolerated. Pt refusing all treatment at this time threatening to leave. Pt states he wants to go home. When RN presented with AMA paper and to remove IV pt was violent towards staff. Dispatch called at this time. [id number]- travel information center supervisor at the bedside at this time
--- NOTE | 2019-11-19 21:34 | PC.NURSE ---
WAS CALLED TO BEDSIDE AFTER PATIENT BEGAN YELLING FOR SOMEONE. WHEN THIS RN WENT TO BEDSIDE PATIENT STATED I'M NOT F*CKING DOING THIS SH*T HERE. YA'LL AIN'T DOING ANYTHING FOR ME AND I'M SICK! THIS RN SAT DOWN AT BEDSIDE TO HAVE THE PATIENT EXPLAIN WHAT HE WAS FEELING, AND WHAT HIS CONCERNS WERE. PATIENT STATE WE WERE REFUSING TO GIVE HIM A BLANKET OR WATER. EDUCATED PATIENT ON WHY HE COULD NOT HAVE A BLANKET DO TO LOW GRADE FEVER, AND I CAN RECHECK HIS TEMP NOW TO SEE IF WE COULD PROVIDE HIM A BLANKET NOW. PATIENT REFUSED, BEGAN RECORDING ME WITH HIS CELLPHONE AND STATED THIS IS WHO IS REFUSING ME A WATER OR BLANKET AT [facility]! THIS RN THEN WALKED OUT TO REPORT TO CHARGE NURSE. [place] PD CONTACTED, AND CLIENT RELATIONS SPECIALIST CONTACTED. PATIENT REFUSED TO LET ME REMOVE HIS IV AT THIS POINT BECAUSE IF HE CAN'T GET A RIDE, THEN WE WILL BE PUTTING UP WITH HIM.
--- NOTE | 2019-11-19 21:43 | PC.NURSE ---
PD at the bedside at this time.
--- NOTE | 2019-11-19 21:45 | PC.NURSE ---
Pt signed AMA paper at this time. PD waiting with patient until ride is here. Pt was not able to leave due to alcohol level.
[2019-11-19 21:48] VITALS: BP 0/0; PULSE 0; RESP 0; TEMP -17.7; TEMP 0
== END 2019-11-19 21:47 | disposition left against medical advice (07) ==
PROVIDERS: Emergency Provider Emergency Medicine
DX: R11.0 Nausea (principal); R19.7 Diarrhea, unspecified; I10 Essential (primary) hypertension; Z86.718 Personal history of other venous thrombosis and embolism; F17.290 Nicotine dependence, other tobacco product, uncomplicated; F19.10 Other psychoactive substance abuse, uncomplicated; Z96.641 Presence of right artificial hip joint; Z96.642 Presence of left artificial hip joint
CPT/HCPCS: 80053; 80305; 81001; 83690; 85025; 85651; 86140; 96365; 96375; 99283; J2405

== ENCOUNTER 2020-08-04 03:37 | Emergency (ER) | payer BC, SELFPAY ==
[2020-08-04 03:26] VITALS: BP 142/116; PULSE 81; RESP 16; TEMP 36.8; O2SAT 97; BMI 31.1
--- NOTE | 2020-08-04 03:36 | CT_ITS ---
PROCEDURE INFORMATION: Exam: CT Lumbar Spine Without Contrast Exam date and time: 08/04/2020 3:36 AM Age: 44 years old Clinical indication: Patient HX: Low back pain with pain down left leg to foot TECHNIQUE: Imaging protocol: Computed tomography images of the lumbar spine without contrast. Radiation optimization: All CT scans at this facility use at least one of these dose optimization techniques: automated exposure control; mA and/or kV adjustment per patient size (includes targeted exams where dose is matched to clinical indication); or iterative reconstruction. COMPARISON: No relevant prior studies available. FINDINGS: Vertebrae: No acute fracture. Normal alignment. Discs/Spinal canal/Neural foramina: Broad-base disc bulges are seen at L3-L4 L4-L5 and most prominently at L5-S1. There is moderate narrowing of the L5-S1 neural foramina bilaterally.. Soft tissues: Unremarkable. IMPRESSION: Bilateral neural foraminal narrowing at L5-S1 secondary to a broad-based disc bulge, consider MRI for further characterization.
--- NOTE | 2020-08-04 03:36 | CT_ITS ---
PROCEDURE INFORMATION: Exam: CT Thoracic Spine Without Contrast Exam date and time: 08/04/2020 3:36 AM Age: 44 years old Clinical indication: Pain in thoracic spine; With radiculopathy; Patient HX: Pain in lower back and radiating down left leg to foot TECHNIQUE: Imaging protocol: Computed tomography images of the thoracic spine without contrast. Radiation optimization: All CT scans at this facility use at least one of these dose optimization techniques: automated exposure control; mA and/or kV adjustment per patient size (includes targeted exams where dose is matched to clinical indication); or iterative reconstruction. Other technique: <StartDictation COMPARISON: No relevant prior studies available. FINDINGS: Vertebrae: No acute fracture. Normal alignment. A few small marginal osteophytes are seen anteriorly. Discs/Spinal canal/Neural foramina: No significant disc protrusion. No severe spinal canal stenosis. No significant neural foraminal narrowing. Soft tissues: Unremarkable. IMPRESSION: Unremarkable CT Spine.
--- NOTE | 2020-08-04 03:36 | XR_ITS ---
PROCEDURE INFORMATION: Exam: XR Pelvis Exam date and time: 08/04/2020 3:36 AM Age: 44 years old Clinical indication: Pelvic pain; Prior surgery; Surgery date: 6+ months; Surgery type: Bilateral hip surgeries; Patient HX: Pain in low back and down left leg to foot TECHNIQUE: Imaging protocol: XR pelvis. Views: 1 or 2 view. COMPARISON: ABDPELW CT abdomen pelvis w con 10/09/2017 6:24 PM FINDINGS: Bones/joints: Multiple screws are seen in the left femoral head. Multiple screws and plates are also seen following repair of a right acetabular fracture. Soft tissues: Unremarkable. Vasculature: There is a stent seen in the left pelvis. IMPRESSION: Extensive bilateral changes following hip surgery as described.
[2020-08-04 03:51] LABS: Basophils % 0.1 % (0.1-2.0); Eosinophils # 0.1 K/mm3 (0.0-0.4); Eosinophils % 0.4 % (0.1-12.0); Hematocrit 44.1 % (42.0-52.0); Hemoglobin 15.1 g/dL (14.1-18.0); Lymphocytes # 1.6 K/mm3 (0.7-4.5); Lymphocytes % 10.6 % (10-50); Mean Corpuscular HGB Conc 34.2 g/dL (31.8-35.4); Mean Corpuscular Hemoglobin 30.3 pg (27.0-31.2); Mean Corpuscular Volume 88.6 fl (80-94); Mean Platelet Volume 7.9 fl (7.4-10.4); Monocytes # 0.6 K/mm3 (0.1-1.0); Monocytes % 3.9 % (1.7-9.3); Neutrophils # 12.9 K/mm3 (1.8-7.8); Platelet Count 268 K/mm3 (142-424); Red Blood Count 4.98 M/mm3 (4.60-6.20); Red Cell Distribution Width 12.8 % (11.5-17.5); White Blood Count 15.2 K/mm3 (4.8-10.8)
[2020-08-04 03:56] LABS: MANUAL DIFFERENTIAL MANUAL DIFFERENTIAL (MANUAL DIFF)
[2020-08-04 03:59] LABS: Alanine Aminotransferase 29 U/L (12-78); Albumin Level 4.5 g/dl (3.5-5.0); Albumin/Globulin Ratio 1.5 (1.1-1.8); Alkaline Phosphatase 53 U/L (38-126); Anion Gap 11.8 mEq/L (5-15); Aspartate Amino Transferase 40 U/L (17-59); Bilirubin,Total 0.4 mg/dl (0.2-1.3); Blood Urea Nitrogen 25 mg/dl (9-20); Carbon Dioxide 24 mmol/L (22.0-30.0); Chloride 107 mmol/L (98-107); Creatinine Clearance Estimated 136 mL/min (50-200); Estimated Glomerular Filt Rate 80 ml/min (>60); GFR (African American) 97 ML/MIN (>60); Glucose 122 mg/dl (74-100); Potassium 3.8 mmoL/L (3.5-5.1); Sodium 139 mmol/L (136-145); Total Protein,Serum 7.5 g/dl (6.3-8.2)
[2020-08-04 04:04] LABS: C-Reactive Protein 1.2 mg/L (0-4)
--- NOTE | 2020-08-04 04:10 | CT_ITS ---
PROCEDURE INFORMATION: Exam: CT Lumbar Spine With Contrast Exam date and time: 08/04/2020 4:10 AM Age: 44 years old Clinical indication: Prior surgery; Surgery date: 6+ months; Surgery type: Bilateral hip surgeries; Patient HX: Low back pain that radiates down left leg to foot TECHNIQUE: Imaging protocol: Computed tomography images of the lumbar spine with intravenous contrast. Radiation optimization: All CT scans at this facility use at least one of these dose optimization techniques: automated exposure control; mA and/or kV adjustment per patient size (includes targeted exams where dose is matched to clinical indication); or iterative reconstruction. Contrast material: ISOVUE; Contrast volume: 100 ml; Contrast route: IV; COMPARISON: CT LUMBAR SPINE WO CON 08/04/2020 3:50 AM FINDINGS: Vertebrae: No acute fracture. Normal alignment. Discs/Spinal canal/Neural foramina: There is a broad-based bulge of the L5-S1 disc causing moderate neural foraminal narrowing bilaterally. There is loss of disc height at L5-S1. Intraperitoneal space: The patient is status post right acetabular ORIF. Vasculature: A patent vascular stent is seen in the left pelvis. Soft tissues: Unremarkable. IMPRESSION: 1. Broad-based disc bulge at L5-S1 causing moderate bilateral neural foraminal narrowing. 2. The visualized portion of the left external iliac vein stent is patent.
--- NOTE | 2020-08-04 04:11 | PC.NURSE ---
contacting to obtain records from previous er visit there
--- NOTE | 2020-08-04 04:13 | HMH.EDBACK ---
ED Disposition Clinical Impression: Lumbar radiculopathy Disposition: Home, Self-Care Condition on Discharge: Good Instructions: DI for Back Pain With Sciatica Additional Instructions: use meds and see pcp for follow up Prescriptions: Ketorolac Tromethamine [Toradol 10mg tablet] 10 mg PO Q6HP PRN #8 tab MDD 40mg/day PRN Reason: Moderate To Severe Pain Transmission Status: Pending to [facility] Referrals: Malaika El [Primary Care Provider] - - Critical Care Critical Care Time: No Attestation: On 08/04/20, the high probability of a clinically significant, sudden or life threatening deterioration of the following system(s) required my full and direct attention, intervention and personal management. The time I documented below is in addition to time spent performing reported procedures but includes the following listed in this critical care notation. Medical Decision Making - Medical Records Medical records reviewed: Yes: I reviewed the patient's medical records. - Brain Inquiry Pt receiving controlled substance: No Vital Signs: 08/04/20 03:26 Temperature 98.2 F Temperature Source Oral Pulse Rate [Right] 81 Respiratory Rate 16 Blood Pressure [Right Arm] 142/116 H Blood Pressure Mean [Right Arm] 124 02 Sat by Pulse Oximetry 97 - Lab Data Lab results reviewed: Yes: I reviewed the patient's lab results. Lab Results 08/04/20 03:40: WBC 15.2 H, RBC 4.98, Hgb 15.1, Hct 44.1, MCV 88.6, MCH 30.3, MCHC 34.2, RDW 12.8, Plt Count 268, MPV 7.9, Neut % (Auto) 85.0 H, Lymph % (Auto) 10.6, [place] % (Auto) 3.9, Eos % (Auto) 0.4, Baso % (Auto) 0.1, Neut # (Auto) 12.9 H, Lymph # (Auto) 1.6, [place] # (Auto) 0.6, Eos # (Auto) 0.1, Baso # (Auto) 0.0, Total Counted 100, Neutrophils % (Manual) 88 H, Lymphocytes % (Manual) 10, Monocytes % (Manual) 2, Platelet Estimate Normal, RBC Morphology Not Reportable, Stomatocytes 1+, ESR 15 08/04/20 03:40: Sodium 139, Potassium 3.8, Chloride 107, Carbon Dioxide 24, Anion Gap 11.8, BUN 25 H, Creatinine 1.00, Estimated Creat Clear 136, Estimated GFR 80, Est GFR ( Amer) 97, Glucose 122 H, Calcium 9.0, Total Bilirubin 0.4, AST 40, ALT 29, Alkaline Phosphatase 53, C-Reactive Protein 1.2, Total Protein 7.5, Albumin 4.5, Globulin 3.0, Albumin/Globulin Ratio 1.5, Procalcitonin < 0.030 Result diagrams: 08/04/20 03:40 08/04/20 03:40 Orders (Tests/Meds): ED MEDICATIONS Discontinued Medications Generic Name Dose Route Start Last Admin Trade Name Freq PRN Reason Stop Dose Admin Iopamidol 100 ml 08/04/20 04:32 08/04/20 04:33 Iopamidol-370 (76%);100ml Bottle IV 08/04/20 04:33 100 ml ONCE ONE Administration Ketorolac Tromethamine 30 mg 08/04/20 03:37 08/04/20 03:46 Ketorolac 30mg/Ml Vial IV 08/04/20 03:38 30 mg ONCE ONE Administration Methylprednisolone Sodium Succinate 125 mg 08/04/20 03:36 08/04/20 03:46 Methylprednisolone Sod Succ 125mg Vial IV 08/04/20 03:37 125 mg ONCE ONE Administration Sodium Chloride 10 ml 08/04/20 04:32 08/04/20 04:33 Sodium Chloride 0.9% 10ml Syr (Rad Only) IV 08/04/20 04:33 10 ml ONCE ONE Administration - CT Data CT Scan: T-Spine, L-Spine Time Received: 06:[address] Reviewed: Yes: I have viewed the radiologist's interpretation Preliminary Findings: Abnormal (see report ) Medical Decision Narrative: has lumbar disc and improved with meds and no cauda equina or evid of discitis Back Pain HPI - General Chief Complaint: Back Pain/Injury Stated Complaint: back pain Time Seen by Provider: 08/04/20 04:00 Mode of Arrival: EMS Source of Information: Patient, Spouse, EMS, Medical Record Limitations: No Limitations Description of Symptoms (Recalled from ER Triage Doc. by RN): pt states woke up a hour with several lumbar pain that radiates down lt leg. pt denies any accident - History of Present Illness HPI Narrative: pt with hx of back issues and over the last 3 weeks has progressive back
[2020-08-04 04:19] LABS: Procalcitonin < 0.030 ng/mL (0.0-2.0)
[2020-08-04 04:30] LABS: Erythrocyte Sedimentation Rate 15 mm/hr (0-15)
[2020-08-04 04:32] LABS: Lymphocytes % 10 % (10-50); Monocytes % 2 % (2-9); Neutrophils % 88 % (42-76); Platelet Estimate Normal; Stomatocytes 1+; Total Cells Counted 100
[2020-08-04 06:10] VITALS: BP 151/94; PULSE 79; RESP 14; TEMP 36.8; O2SAT 97
== END 2020-08-04 06:17 | disposition home or self-care (01) ==
PROVIDERS: Emergency Provider Emergency Medicine; PCP Nurse Practitioner
DX: M54.16 Radiculopathy, lumbar region (principal); I10 Essential (primary) hypertension; Z86.718 Personal history of other venous thrombosis and embolism; Z96.641 Presence of right artificial hip joint; Z96.642 Presence of left artificial hip joint; Z79.899 Other long term (current) drug therapy
CPT/HCPCS: 72128; 72131; 72132; 72170; 80053; 84145; 85007; 85025; 85651; 86140; 96375; 99282; Q9967

== ENCOUNTER 2020-11-04 19:56 | Observation (INO) | payer BC, SELFPAY ==
[2020-11-04 19:57] VITALS: BP 137/95; PULSE 106; RESP 21; TEMP 37.4; O2SAT 87; BMI 32.5
--- NOTE | 2020-11-04 20:04 | ECG_ITS ---
APPROVED REPORT Exam: Resting ECG HR:106 bpm ECG Measurements Heart Rate 106 AXES MA 132 P 39 QRSd 82 QRS -9 QT 330 T 31 QTc 438 Conclusion Sinus tachycardia Otherwise normal ECG Electronically signed by : Aditya Aguilera MD 11/06/2020 10:55:16
[2020-11-04 20:30] VITALS: BP 106/78; PULSE 105; RESP 18; O2SAT 85
--- NOTE | 2020-11-04 20:31 | CT_ITS ---
PROCEDURE INFORMATION: Exam: CTA Chest With Contrast Exam date and time: 11/04/2020 8:31 PM Age: 45 years old Clinical indication: Cough and shortness of breath; Patient HX: SOA, cough, covid positive; Additional info: SOA with exertion TECHNIQUE: Imaging protocol: Computed tomographic angiography of the chest with contrast. 3D rendering (Not supervised by radiologist): MIP and/or 3D reconstructed images were created by the technologist. Radiation optimization: All CT scans at this facility use at least one of these dose optimization techniques: automated exposure control; mA and/or kV adjustment per patient size (includes targeted exams where dose is matched to clinical indication); or iterative reconstruction. Contrast material: ISO 370; Contrast volume: 70 ml; Contrast route: INTRAVENOUS (IV); COMPARISON: [facility] CT angio chest 10/09/2017 6:24 PM FINDINGS: Pulmonary arteries: Enlarged pulmonary arteries likely represent chronic pulmonary arterial hypertension. Evaluation of the pulmonary arteries is limited to the segmental arterial level due to patient motion artifact. Aorta: Mild atherosclerotic changes of the aorta. Other arteries: The left vertebral artery originates directly from the aorta. Lungs: Widespread ground-glass airspace disease. Pleural spaces: Unremarkable. No pneumothorax. No pleural effusion. Heart: Heart is at the upper limits of normal in size. Lymph nodes: Shotty mediastinal lymph nodes are likely reactive. Liver: Possible hepatic steatosis. Gallbladder and bile ducts: Distended gallbladder. Bones/joints: Old bilateral rib fractures. Soft tissues: Unremarkable. Other findings: Stigmata of old granulomatous disease. IMPRESSION: 1. Evaluation of the pulmonary arteries is limited to the segmental arterial level due to patient motion artifact. Within the limitations of the study, no pulmonary emboli. 2. Widespread ground-glass airspace disease. This pattern is common for COVID-19.
--- NOTE | 2020-11-04 20:31 | XR_ITS ---
PROCEDURE INFORMATION: Exam: XR Chest Exam date and time: 11/04/2020 8:31 PM Age: 45 years old Clinical indication: Cough and shortness of breath; Patient HX: SOA, cough, covid positive TECHNIQUE: Imaging protocol: XR of the chest. Views: 2 views. COMPARISON: CR XR CHEST PORTABLE 11/16/2019 10:11 AM FINDINGS: Lungs: Widespread ground-glass airspace disease. Stigmata of old granulomatous disease. Pleural spaces: Appearance of bilateral pleural effusions correlates with fatty pleural thickening on CT. Heart/Mediastinum: Unremarkable. No cardiomegaly. Vasculature: Low lung volumes with associated vascular crowding and bibasilar atelectasis. Bones/joints: Old bilateral rib fractures. IMPRESSION: Widespread ground-glass airspace disease. This could correlate with COVID-19 infection.
[2020-11-04 20:36] LABS: Influenza A, PCR Not Detected (NotDetected); Influenza B, PCR Not Detected (NotDetected)
[2020-11-04 20:43] LABS: Eosinophils % 0.1 % (0.1-12.0); Hematocrit 46.2 % (42.0-52.0); Hemoglobin 15.2 g/dL (14.1-18.0); Lymphocytes # 0.5 K/mm3 (0.7-4.5); Lymphocytes % 12.7 % (10-50); Mean Corpuscular Hemoglobin 30.7 pg (27.0-31.2); Mean Corpuscular Volume 93.2 fl (80-94); Mean Platelet Volume 8.3 fl (7.4-10.4); Monocytes # 0.2 K/mm3 (0.1-1.0); Neutrophils # 3.2 K/mm3 (1.8-7.8); Neutrophils % 80.2 % (37.0-80.0); Platelet Count 243 K/mm3 (142-424); Red Blood Count 4.96 M/mm3 (4.60-6.20); Red Cell Distribution Width 13.9 % (11.5-17.5)
[2020-11-04 20:44] LABS: Alanine Aminotransferase 46 U/L (12-78); Albumin Level 4.1 g/dl (3.5-5.0); Alkaline Phosphatase 73 U/L (38-126); Anion Gap 16.3 mEq/L (5-15); Aspartate Amino Transferase 92 U/L (17-59); Bilirubin,Direct 0.3 mg/dl (0.0-0.4); Bilirubin,Indirect 0.1 mg/dL (0.0-0.9); Bilirubin,Total 0.4 mg/dl (0.2-1.3); Bilirubin,Unconjugated 0.2 mg/dL (0.0-1.1); Blood Urea Nitrogen 17 mg/dl (9-20); Calcium 8.9 mg/dl (8.4-10.2); Carbon Dioxide 32 mmol/L (22.0-30.0); Chloride 93 mmol/L (98-107); Creatinine Clearance Estimated 176 mL/min (50-200); Estimated Glomerular Filt Rate 104 ml/min (>60); GFR (African American) 125 ML/MIN (>60); Glucose 135 mg/dl (74-100); Potassium 4.3 mmoL/L (3.5-5.1); Sodium 137 mmol/L (136-145); Total Protein,Serum 7.9 g/dl (6.3-8.2)
[2020-11-04 20:45] VITALS: BP 109/79; PULSE 100; RESP 10; O2SAT 99
[2020-11-04 21:00] LABS: Coronavirus 19, PCR Detected (NotDetected)
[2020-11-04 21:03] LABS: Procalcitonin 0.126 ng/mL (0.0-2.0)
[2020-11-04 21:15] LABS: Erythrocyte Sedimentation Rate 55 mm/hr (0-15)
[2020-11-04 21:16] LABS: Troponin I < 0.01 ng/ml (0.00-0.034)
[2020-11-04 21:30] VITALS: BP 168/86; PULSE 111; RESP 24; O2SAT 91
[2020-11-04 21:30] LABS: ABG Base Excess 0.8 mmol/L (-2.4-2.3); ABG HCO3 25.5 mmhg (22.0-26.0); ABG Oxygen Saturation 92 % (90-100); ABG PH 7.41 mmol/L (7.35-7.45); ABG PO2 63.5 mmhg (80-100); ABG TCO2 26.7 mmhg (23-27)
[2020-11-04 21:31] LABS: Allen's Test Acceptable; Oxygen 4L %; Source Right Radial
[2020-11-04 22:00] VITALS: BP 99/79; PULSE 98; RESP 17; O2SAT 92
--- NOTE | 2020-11-04 22:44 | HMH.EDSOB ---
ED Disposition Clinical Impression: COVID-19 Respiratory failure with hypoxia Qualifiers: Chronicity: acute Qualified Code(s): J96.01 - Acute respiratory failure with hypoxia Disposition: Admitted As Inpatient Condition on Discharge: Fair Referrals: Malaika El [Primary Care Provider] - - Critical Care Critical Care Time: No Attestation: On 11/04/20, the high probability of a clinically significant, sudden or life threatening deterioration of the following system(s) required my full and direct attention, intervention and personal management. The time I documented below is in addition to time spent performing reported procedures but includes the following listed in this critical care notation. Medical Decision Making - Medical Records Medical records reviewed: Yes: I reviewed the patient's medical records. - Brain Inquiry Pt receiving controlled substance: No Vital Signs: 11/04/20 19:57 11/04/20 20:30 11/04/20 20:45 Temperature 99.4 F Temperature Source Oral Pulse Rate 105 H 100 H Pulse Rate [Apical] 106 H Respiratory Rate 21 18 10 L Blood Pressure 106/78 L 109/79 L Blood Pressure [Right Arm] 137/95 H Blood Pressure Mean [Right Arm] 109 Blood Pressure Source [Right Arm] Automatic Cuff Blood Pressure Position [Right Arm] Sitting 02 Sat by Pulse Oximetry 87 L 85 L 99 Oxygen Delivery Method Room Air Oxygen Flow Rate (LPM) 11/04/20 21:30 11/04/20 22:00 Temperature Temperature Source Pulse Rate 111 H 98 H Pulse Rate [Apical] Respiratory Rate 24 17 Blood Pressure 168/86 H 99/79 L Blood Pressure [Right Arm] Blood Pressure Mean [Right Arm] Blood Pressure Source [Right Arm] Blood Pressure Position [Right Arm] 02 Sat by Pulse Oximetry 91 L 92 L Oxygen Delivery Method Nasal Cannula Nasal Cannula Oxygen Flow Rate (LPM) 3 3 - Lab Data Lab results reviewed: Yes: I reviewed the patient's lab results. Lab Results 11/04/20 20:11: SARS-CoV-2 (PCR) Detected A, Influenza A Untype (PCR) Not detected, Influenza Type B (PCR) Not detected 11/04/20 20:20: WBC 4.0 L, RBC 4.96, Hgb 15.2, Hct 46.2, MCV 93.2, MCH 30.7, MCHC 33.0, RDW 13.9, Plt Count 243, MPV 8.3, Neut % (Auto) 80.2 H, Lymph % (Auto) 12.7, [place] % (Auto) 6.0, Eos % (Auto) 0.1, Baso % (Auto) 1.0, Neut # (Auto) 3.2, Lymph # (Auto) 0.5 L, [place] # (Auto) 0.2, Eos # (Auto) 0.0, Baso # (Auto) 0.0, ESR 55 H 11/04/20 20:20: Sodium 137, Potassium 4.3, Chloride 93 L, Carbon Dioxide 32 H, Anion Gap 16.3 H, BUN 17, Creatinine 0.80, Estimated Creat Clear 176, Estimated GFR 104, Est GFR ( Amer) 125, Glucose 135 H, Calcium 8.9, Total Bilirubin 0.4, Direct Bilirubin 0.3, Conjugated Bilirubin 0.0, Indirect Bilirubin 0.1, Unconjugated Bilirubin 0.2, AST 92 H, ALT 46, Alkaline Phosphatase 73, Troponin I < 0.01, C-Reactive Protein 238.0 H, Total Protein 7.9, Albumin 4.1, Procalcitonin 0.126 11/04/20 20:23: Specimen Source Right radial, O2 % 4l, ABG pH 7.41, ABG pCO2 41.0, ABG pO2 63.5 L, ABG HCO3 25.5, ABG Total CO2 26.7, ABG O2 Saturation 92, ABG Base Excess 0.8, Artie Test Acceptable Result diagrams: 11/04/20 20:20 11/04/20 20:20 Orders (Tests/Meds): ED MEDICATIONS Generic Name Dose Route Start Last Admin Trade Name Freq PRN Reason Stop Dose Admin Sodium Chloride 1,000 mls @ 999 mls/hr 11/04/20 20:45 11/04/20 21:12 Sod Chlor 0.9% 1000ml Bag IV 11/04/20 21:45 999 mls/hr .Q1H1M LAINE Administration Discontinued Medications Generic Name Dose Route Start Last Admin Trade Name Freq PRN Reason Stop Dose Admin Dexamethasone Sodium Phosphate 10 mg 11/04/20 20:31 11/04/20 21:12 Dexamethasone 4mg/Ml 5ml Mdv IV 11/04/20 20:32 10 mg ONCE ONE Administration Iopamidol 70 ml 11/04/20 21:04 11/04/20 21:05 Iopamidol-370 (76%);100ml Bottle IV 11/04/20 21:05 70 ml ONCE ONE Administration Ketorolac Tromethamine 30 mg 11/04/20 21:00 11/04/20 21:11 Ketorolac 30mg/Ml Vial IV 11/04/20 21:01 30 mg
[2020-11-04 23:16] VITALS: BMI 31.3
[2020-11-04 23:55] LABS: Troponin I < 0.01 ng/ml (0.00-0.034)
[2020-11-05 00:07] LABS: Ferritin 1930 ng/ml (17.9-464)
--- NOTE | 2020-11-05 01:28 | PC.NURSE ---
PT ARRIVED TO FLOOR VIA W/C FROM ED W/STAFF AT 0127
[2020-11-05 01:40] VITALS: PULSE 70
[2020-11-05 01:59] VITALS: BP 131/92; PULSE 63; RESP 20; TEMP 36.4; O2SAT 96
[2020-11-05 02:04] VITALS: BP 131/92; PULSE 63; RESP 18; TEMP 37.4; O2SAT 92
[2020-11-05 03:19] LABS: Troponin I < 0.01 ng/ml (0.00-0.034)
[2020-11-05 04:00] VITALS: BP 130/90; PULSE 60; PULSE 79; RESP 20; TEMP 36.4; O2SAT 96
[2020-11-05 04:35] VITALS: BMI 31.3
--- NOTE | 2020-11-05 06:38 | PC.NURSE ---
Patient has a dry cough and has requested cough medication. He has also requested Trazadone for sleep stating he takes it at home at night to sleep. No s/s of acute distress noted, call light within reach, bed at lowest level; will continue to monitor.
--- NOTE | 2020-11-05 07:00 | XR_ITS ---
PROCEDURE INFORMATION: Exam: XR Chest Exam date and time: 11/05/2020 7:00 AM Age: 45 years old Clinical indication: Shortness of breath; Patient HX: Covid; Additional info: SOB TECHNIQUE: Imaging protocol: XR of the chest. Views: 1 view. COMPARISON: CR XR CHEST 2V 11/04/2020 8:46 PM FINDINGS: Lungs: The mild to moderate perihilar infiltrates are stable. Pleural spaces: There are trace pleural effusions but no pneumothorax. Heart/Mediastinum: There is hypoinflation with crowding of the mediastinal structures and bronchovascular bundles. The mild cardiomegaly is stable. Bones/joints: The bones are grossly intact. IMPRESSION: Slightly decreased inspiratory effort but otherwise little change in the cardiomegaly, bilateral infiltrates and trace pleural effusions.
[2020-11-05 07:05] LABS: Basophils % 0.5 % (0.1-2.0); Hematocrit 41.1 % (42.0-52.0); Lymphocytes # 0.3 K/mm3 (0.7-4.5); Lymphocytes % 11.1 % (10-50); Mean Corpuscular HGB Conc 33.1 g/dL (31.8-35.4); Mean Corpuscular Hemoglobin 30.8 pg (27.0-31.2); Mean Corpuscular Volume 93.1 fl (80-94); Mean Platelet Volume 8.8 fl (7.4-10.4); Monocytes # 0.1 K/mm3 (0.1-1.0); Monocytes % 4.8 % (1.7-9.3); Neutrophils # 2.3 K/mm3 (1.8-7.8); Neutrophils % 83.6 % (37.0-80.0); Platelet Count 230 K/mm3 (142-424); Red Blood Count 4.42 M/mm3 (4.60-6.20); White Blood Count 2.8 K/mm3 (4.8-10.8)
[2020-11-05 07:07] LABS: Hemoglobin 13.6 g/dL (14.1-18.0)
--- NOTE | 2020-11-05 07:16 | HMH.PHAVTE ---
[facility] Pharmacy VTE Monitoring - Patient Demographics Admission date: 11/05/20 Report Date: 11/05/20 Time: 07:16 Allergies/Adverse Reactions: Patient Allergies No Known Allergies Allergy (Verified 06/24/19 11:19) Height: 1.83 m Weight: 105.007 kg Patient Problems: Current Active Problems COVID-19 (Acute) Respiratory failure with hypoxia (Acute) - VTE Risk Labs: VTE Related Lab Results Hgb 13.6 g/dL (14.1-18.0) L D 11/05/20 06:37 Hct 41.1 % (42.0-52.0) L 11/05/20 06:37 Plt Count 230 K/mm3 (142-424) 11/05/20 06:37 BUN 17 mg/dl (9-20) 11/04/20 20:20 Creatinine 0.80 mg/dl (0.66-1.25) 11/04/20 20:20 Estimated Creat Clear 176 mL/min (50-200) 11/04/20 20:20 Was VTE Risk Assessment Performed: Yes VTE Risk Level: Low Risk Clinical Trial Participant: No - Prophylaxis VTE Prophylaxis Ordered?: Yes Types of VTE Prophylaxis: TEDS Knee High, Pharmacological Pharmacologic Type: Other (eliquis)
[2020-11-05 07:22] LABS: Anion Gap 12.5 mEq/L (5-15); Blood Urea Nitrogen 19 mg/dl (9-20); Calcium 8.5 mg/dl (8.4-10.2); Carbon Dioxide 31 mmol/L (22.0-30.0); Chloride 96 mmol/L (98-107); Creatinine Clearance Estimated 226 mL/min (50-200); Estimated Glomerular Filt Rate 144 ml/min (>60); GFR (African American) 175 ML/MIN (>60); Glucose 168 mg/dl (74-100); Potassium 4.5 mmoL/L (3.5-5.1); Sodium 135 mmol/L (136-145)
[2020-11-05 08:00] VITALS: BP 141/97; PULSE 68; PULSE 70; RESP 22; TEMP 36.6; O2SAT 95
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
[2020-11-05 08:56] VITALS: O2SAT 77
--- NOTE | 2020-11-05 13:04 | SW/DCPLANNER ---
PATIENT IS DISCHARGING HOME TODAY AND HOME 02 WAS NECESSARY... IT WAS SET UP PER PATIENT CHOICE WITH [facility].. A PORTABLE TANK HAS BEEN DELIVERED TO THE HOSPITAL PRIOR TO DELIVERY...
== END 2020-11-05 10:05 | disposition home or self-care (01) ==
LOC: ER 22:59 → 2ND 11-05 06:30
PROVIDERS: Admitting Provider Internal Medicine Adolescent Medicine; Emergency Provider Emergency Medicine; PCP Nurse Practitioner; Visit Provider Internal Medicine Adolescent Medicine
DX: U07.1 COVID-19 (principal); J96.01 Acute respiratory failure with hypoxia; Z79.01 Long term (current) use of anticoagulants; Z79.899 Other long term (current) drug therapy; Z86.718 Personal history of other venous thrombosis and embolism
CPT/HCPCS: 36415; 71045; 71046; 71275; 80048; 80076; 82728; 82803; 83735; 84145; 84484; 85025; 85651; 86140; 93005; 96365; 96375; 99284; G0378; Q9967; U0003

== ENCOUNTER 2021-08-19 17:30 | Outpatient (RCR) | payer BC, SELFPAY ==
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
== END 2021-08-19 17:35 | disposition home or self-care (01) ==
LOC: PT 17:30
PROVIDERS: PCP Nurse Practitioner; Visit Provider Internal Medicine Adolescent Medicine
DX: M54.6 Pain in thoracic spine (principal)
CPT/HCPCS: 97010; 97014; 97035; 97110; 97112; 97140; 97163; 97530; G0283

== ENCOUNTER → 2022-09-19 17:06 | Outpatient (CLI) | payer BC, SELFPAY | PROVIDERS: PCP Nurse Practitioner Family; Visit Provider Nurse Practitioner Family | DX: G47.33 Obstructive sleep apnea (adult) (pediatric) (principal); R06.83 Snoring; R40.0 Somnolence | CPT/HCPCS: 95806 ==

== ENCOUNTER 2024-11-04 13:07 | Outpatient (CLI) | payer MEDICAID, SELFPAY ==
--- NOTE | 2024-11-04 | XR_ITS ---
FINAL REPORT CLINICAL HISTORY: COUGH, CONGESTION AND CHEST PAIN FOR 1.5 WEEKS COMPARISON: 11/05/2020 FINDINGS: 2 views of the chest were obtained . The heart is normal in size. The mediastinum is within normal limits. The lungs are clear. There is no pneumothorax. Osseous structures are unremarkable. IMPRESSION: No acute cardiopulmonary process. Reviewed, Interpreted and Dictated by Julieta Bhandari MD Transcribed by Perlita Shaver Authenticated and [facility]
--- OUTSIDE RECORDS SUMMARY | 2024-11-04 13:13 | XMS_ITS | Clinical Summary ---
[facility] Address [address] [place] [address] Care Team Providers Care Jet Handler Name Role Phone Malaika El SHASHI Primary Care Provider [phone] Allergies No known active allergies Medications HM Aspirin EC Low Dose 81 MG EC tablet Take 81 mg by mouth Daily. 11/23/2020 Active lisinopril-hydr ochlorothiazide (PRINZIDE,ZESTO RETIC) 20-12.5 MG per tablet Take 2 tablets by mouth Every Morning. 12/24/2020 Active HM Loratadine 10 MG tablet Take 10 mg by mouth Daily. 12/24/2020 Active diclofenac (VOLTAREN) 75 MG EC tablet Take 75 mg by mouth 2 (Two) Times a Day. 10/24/2020 Active traZODone (DESYREL) 150 MG tablet Take 150 mg by mouth Every Night. 10/24/2020 Active buprenorphine-n aloxone (SUBOXONE) 8-2 MG per SL tablet Place 1.75 tablets under the tongue Every Morning. 04/07/2021 Active traMADol (ULTRAM) 50 MG tabletIndicatio ns:Lumbar disc herniation with radiculopathy,D DD (degenerative disc disease), lumbar 1-2 tabs p.o. every 6 hours as needed pain 60 tablet 05/04/2021 Active Eliquis 2.5 MG tablet tablet 09/06/2021 Activ e methocarbamol (ROBAXIN) 750 MG tablet Take 1 tablet by mouth 3 (Three) Times a Day As Needed for Muscle Spasms. 50 tablet 09/15/2021 Active Active Problems Problem Noted Date Diagnosed Date HNP (herniated nucleus pulposus), lumbar 021 Family History Medical History Relation Name Comments Heart attack Father Relation Name Status Comments Father Social History Tobacco Use Types Packs/Day Years Used Date Smoking Tobacco: Never Smokeless Tobacco: Current Snuff Tobacco Cessation:Ready to Q uit: No Comments:1 can of snuff daily x 30 years Alcohol Use Standard Drinks/Week Comments Yes 7 (1 standard drink = 0.6 oz pur e alcohol) Abuse Screen Answer Date Recorded Unsafe at Home or Work/School Not on file Feels Threatened by Someone? Not on file 10/2022 Does Anyone Keep You from Co ntacting Others or Doint Things Outside the Home? Not on file 12/05/2022 Physical Sign of Abuse Present Not on file 1 Housing Stability Answer Date Recorded Current Living Arrangements Not on file 10/2022 Potentially Unsafe Housing Conditions Not on yumi e 12/05/2022 Family and Community Support Answer Gerald e Recorded Help with Day-to-Day Activities Not on file 12/05/2022 Lonely or Isolated Not on file 12/05/2022 Employment Answer Date Recorded Do you want help finding or keeping work or a kellee b? Not on file 12/05/2022 Disabilities Answer Date Recorded Concentrating, Remembering, or Making Decisions Difficulty Not on file 12/05/2022 Doing Errands Independently Difficulty Not on fi le 12/05/2022 Education Answer Date Recorded Help with school or training? Not on file Preferred Language Not on file 12/05/2022 Sex and Gender Information Value Date Recorded Sex Assigned at Not on file Legal Sex Male 12:57 PM EDT Gender Identity Not on file Sexual Orientation Not on file Last Filed Vital Signs Vital Sign Reading Time Taken Comments Blood Pressure 110/80 09/15/2021 9:34 AM EDT Pulse 68 05/04/2021 10:58 AM EST Temperature 36.6 C (97.8 F) 09/15/2021 9:34 AM EDT Respiratory Rate 20 05/04/2021 10:58 AM EST Oxygen Saturation 99% 04/19/2021 3:33 PM EST Inhaled Oxygen Concentration - - Weight 111 kg (245 lb 3.2 oz) 09/15/2021 9:34 AM EDT Height 182.9 cm (6') 09/15/2021 9:34 AM EDT Body Mass Index 33.26 09/15/2021 9:34 AM EDT Plan of Treatment Health Maintenance Due Date Last Done Comments TDAP/TD VACCINES (1 - Tdap) 1992 COLOGUARD 2018 COLON CANCER SCREENING 5 YEAR SIGMOIDOSCOPY 2018 COLONOSCOPY [address] CANCER SCREENING 2018 CT COLONOGRAPHY 2018 FECAL OCCULT BLOOD TEST 2018 FIT Testing (1 year) 2018 ANNUAL PHYSICAL 12/30/2020 HEPATITIS C SCREENING 12/30/2020 Pneumococcal Vaccine 50+ (1 of 1 - PCV) 09/03/2023 ZOSTER VACCINE (1 of 2) 09/03/2023 COVID-19 Vaccine (1 - season) 2024 INFLUENZA VACCINE 11/27/2024 Medical Devices Implanted Type Area Pin Machine Tender Device Identifier Shelf Expiration Date Model / Serial / Lot Kt Seal Hemos Abs Floseal Matrx Fast/Prep 10ml - [id number] Implanted:Qty : 1 on 04/19/2021 by Arden Zuniga MD at [facility] Implant N/A: Spine Lumbar [facility] 01/09/2023 [id number] / / [id number] Description:Given to sterile field Hemost Abs Surgifoam Sz100 8x12 10mm - [id number] Implanted:Qty : 1 on 04/19/2021 by Arden Zuniga MD at [facility] Implant N/A: Spine Lumbar [employer] 04/02/2024 [id number] / / [id number] Description:Given to sterile field Care Teams Jet Handler Relationship Specialty Start Date End Date Malaika El APRN [address] [place] [phone] PCP - General Family Medicine 01/15/21
--- OUTSIDE RECORDS SUMMARY | 2024-11-04 13:13 | XMS_ITS | Clinical Summary ---
Author Organization [facility] Address [address] [place] [address] Care Team Providers Care Loom Fixer Supervisor Name Role Phone Farrukh Flower MD Primary Care Provider [phone] Family History Medical History Relation Name Comments Coronary artery disease Mother Relation Name Status Comments Mother Social History Tobacco Use Types Packs/Day Years Used Date Smoking Tobacco: Every Day Sex and Gender Information Value Date Recorded Sex Assigned at Not on file Legal Sex Male 8:24 PM EDT Gender Identity Not on file Sexual Orientation Not on file Last Filed Vital Signs Vital Sign Reading Time Taken Comments Blood Pressure 127/81 11/22/2017 2:09 PM EDT Pulse 76 11/22/2017 1:52 PM EDT Temperature - - Respiratory Rate 16 11/22/2017 1:52 PM EDT Oxygen Saturation - - Inhaled Oxygen Concentration - - Weight 109 kg (241 lb 0.1 oz) 11/22/2017 1:52 PM EDT Height 182.9 cm (6') 11/22/2017 1:52 PM EDT Body Mass Index 32.69 11/22/2017 1:52 PM EDT Plan of Treatment Not on file Care Teams Loom Fixer Supervisor Relationship Specialty Start Date End Date Farrukh Flower MD [address] [place] [address] PCP - General 07/10/20
== END 2024-11-04 23:59 | disposition home or self-care (01) ==
LOC: RAD 13:08
PROVIDERS: PCP Internal Medicine Adolescent Medicine; Visit Provider Internal Medicine Adolescent Medicine
DX: J18.0 Bronchopneumonia, unspecified organism (principal)
CPT/HCPCS: 71046

== ENCOUNTER 2024-12-05 05:19 | Emergency (ER) | payer MEDICAID, SELFPAY ==
[2024-12-05 05:24] VITALS: BP 164/119; PULSE 82; O2SAT 100
[2024-12-05 05:27] VITALS: BP 164/119; PULSE 75; RESP 16; TEMP 36.5; O2SAT 100; BMI 33.9
--- NOTE | 2024-12-05 05:27 | HMH.EDGENADL ---
Discharge Plan Disposition Patient Disposition: Home, Self-Care Prescriptions Prescriptions: No Action loratadine 10 mg tablet 10 mg PO DAILY Movantik 25 mg tablet 25 mg PO DAILY Rx Instructions: must be taken on empty stomach; no food 1 hr after or 2-3 hrs before dose lisinopril-hydrochlorothiazide 20-12.5 mg tablet 1 tab PO DAILY aspirin [Adult Low Dose Aspirin] 81 mg tablet,delayed release (DR/EC) 81 mg PO DAILY potassium 99 mg tablet PO DAILY cetirizine [Zyrtec] 10 mg tablet 10 mg PO DAILY trazodone 150 mg tablet 150 mg PO QHS PRN (Reason: insomnia) Qty: 90 0RF fluticasone propionate 50 mcg/actuation spray,suspension 1 spray INTRANASAL DAILY Qty: 18.2 2RF ketorolac 10 MG tablet 10 mg PO Q6HP MDD 40mg/day PRN (Reason: Moderate To Severe Pain) Qty: 8 0RF Rx Instructions: Therapy initiated with IV/IM dose promethazine-DM 120 ML syrup 5 ml PO Q6HP PRN (Reason: Cough) Qty: 240 0RF azithromycin 250 MG tablet 250 mg PO DIRECTED Qty: 6 0RF Rx Instructions: Take two (2) tablets on day #1, then one (1) tablet day #2 thru #5 dexamethasone 4 MG tablet 4 mg PO BID Qty: 14 0RF buprenorphine-naloxone 8 MG-2 tablet, sublingual 1 tab SL DAILY apixaban 5 mg tablet 2.5 mg PO DAILY ibuprofen 800 MG tablet 800 mg PO TIDP PRN (Reason: Moderate Pain) Qty: 20 0RF Referrals Follow up/Referrals: Wilfredo Gaxiola DO [Staff Physician, Orthopedics] - See instructions Aditya Aguilera MD [Primary Care Provider, Internal Medicine] - See instructions Activity Restrictions/Add. Instructions Additional Instructions/Restrictions: Please follow-up with your primary care provider and with ortho. Please return to the emergency department if you develop any new or worsening symptoms or become concerned for your health. Clinical Impressions Clinical Impression: Acute pain of left knee Print Language Print Language: French Discharge ED Provider: Cholo Christopher General Adult HPI General Chief complaint: Extremity Injury, Lower Stated complaint: left knee swollen, painful Time Seen by Provider: 12/05/24 05:20 History of Present Illness HPI narrative: 49-year-old male with history of prior DVT requiring stent placement, on chronic anticoagulation, presents with atraumatic left knee pain. He points to the anterior medial aspect of the knee as the source of the pain. Denies any trauma, injury. Denies any history of infection, gout, IV drug use. He reports pain with range of motion and with putting pressure on it. Denies any fever at home. Reports no redness. Related Data Home Medications ?Medication ?Instructions ?Recorded ?Confirmed buprenorphine 8 mg-naloxone 2 mg 1 tab SL DAILY addiction 10/09/17 06/13/19 sublingual tablet apixaban 5 mg tablet 2.5 mg PO DAILY Blood thinner 06/24/19 11/05/20 aspirin 81 mg tablet,delayed 81 mg PO DAILY 06/24/19 release (Adult Low Dose Aspirin) cetirizine 10 mg tablet (Zyrtec) 10 mg PO DAILY 06/24/19 06/24/19 lisinopril 20 1 tab PO DAILY High blood pressure 06/24/19 11/05/20 mg-hydrochlorothiazide 12.5 mg tablet loratadine 10 mg tablet 10 mg PO DAILY 06/24/19 naloxegol 25 mg tablet (Movantik) 25 mg PO DAILY 06/24/19 potassium 99 mg tablet mg PO DAILY 06/24/19 Previous Rx's ?Medication ?Instructions ?Recorded trazodone 150 mg tablet 150 mg PO QHS PRN insomnia #90 tabs 03/23/18 fluticasone propionate 50 1 spray intranasal DAILY allergies 06/22/18 mcg/actuation nasal #18.2 grams spray,suspension ibuprofen 800 mg tablet 800 mg PO TIDP PRN Moderate Pain 11/15/19 #20 tabs ketorolac 10 mg tablet 10 mg PO Q6HP PRN Moderate To 08/04/20 Severe Pain #8 tabs azithromycin 250 mg tablet 250 mg PO DIRECTED #6 tabs 11/05/20 dexamethasone 4 mg tablet 4 mg PO BID #14 tabs 11/05/20 promethazine-DM 6.25 mg-15 mg/5 mL 5 ml PO Q6HP PRN Cough #240 mL 11/05/20 oral syrup Allergies Allergy/AdvReac Type Severity Reaction Status Date / Time No Known Allergies Allergy Verified 06/24/19 11:19 [facility] Disclaimer: The information contained in this section may have been updated after the patient was seen, as this information can be updated by other users. Medical History (Updated 12/05/24 @ 06:50 by Cholo Christopher MD) Hx of deep venous thrombosis Alcoholism PAD (peripheral artery disease) Dyspnea Social History Smoking Status: Never smoker alcohol intake: current alcohol intake frequency: a few times a week substance use type: former substance user current occupational status: employed Travel in the last 8 weeks?: None household members: children housing: house current occupation: self employed current occupational exposures/hazards: No caffeine: No Have you lived/traveled outside US in past 30 days?: No Contact w/someone who lives/traveled outside US past 30 days?: No Exposure to someone with infectious disease in past 14 days?: No Do you have a fever (greater than 100.4 F or 38 C)?: No Have you tested positive for COVID-19?: No Exposed to someone with COVID-19 in past 14 days?: No Do you have a sore throat?: No Do you have a cough?: No Do you have any weakness?: No Do you have any diarrhea?: No Are you experiencing any unusual bleeding?: No Do you have any muscle aches/pain?: No Do you have any abdominal pain?: No Are you experiencing loss of taste or smell?: No Other Medical History Have you received the Flu Vaccine for this season: No Have you received the Pneumonia Vaccine: No ROS Obtained: Yes All systems reviewed & no additional complaints except as documented Physical Exam General General appearance: alert and in no apparent distress Head Head exam: atraumatic and normocephalic Eye Eye exam: Present normal appearance, PERRL and EOMI ENT ENT exam: Present normal oropharynx and normal external ear exam Neck Neck exam: Present normal inspection and full ROM Chest Chest inspection: Present normal inspection and symmetric chest wall rise; Absent tenderness Respiratory Respiratory exam: Present normal lung sounds bilaterally; Absent respiratory distress Cardiovascular Cardiovascular exam: Present regular rate and normal rhythm Abdominal Exam Abdominal exam: Present soft; Absent distention, tenderness or guarding Extremities Exam Extremities exam: Present normal inspection and joint swelling (Left knee swelling without erythema. Tenderness with palpation, pain with range of motion); Absent edema Back Exam Back exam: Present normal inspection; Absent tenderness Neurological Exam Neurological exam: Present alert and oriented X3; Absent motor sensory deficit Psychiatric Psychiatric exam: Present normal affect and normal mood Skin Skin exam: Present warm, dry and normal color Lymphatic Lymphatic Findings: no adenopathy Medical Decision Making Medical Records Medical records reviewed: Yes I reviewed the patient's medical records. Screening: Per USPSTF and CDC recommendations, given the prevalence of disease in our region, it is our hospital?s policy to screen for HIV and viral Hepatitis for all patients aged 18 and over and those with ongoing risk factors. Brain Inquiry Pt receiving controlled substance: No Brain was queried for this patient: No Vital Signs: 12/05/24 05:24 12/05/24 05:27 12/05/24 05:30 Temperature 97.7 F Temperature Source Oral Pulse Rate 82 85 Pulse Rate [Radial] 75 Respiratory Rate 16 Blood Pressure 164/119 H 139/117 H Blood Pressure [Right Arm] 164/119 H Blood Pressure Mean [Right Arm] 134 Blood Pressure Position [Right Arm] Sitting 02 Sat by Pulse Oximetry 100 100 97 Oxygen Delivery Method Room Air Lab Data Lab results reviewed: Yes I reviewed the patient's lab results. Lab Results 12/05/24 06:02: WBC 5.4, RBC 4.32 L, Hgb 13.3 L, Hct 39.3 L, MCV 91.0, MCH 30.8, MCHC 33.8, RDW 13.3, Plt Count 231, MPV 10.2, Neut % (Auto) 60.3, Lymph % (Auto) 28.5, Calvert % (Auto) 8.8, Eos % (Auto) 1.3, Baso % (Auto) 0.9, Neut # (Auto) 3.2, Lymph # (Auto) 1.5, Calvert # (Auto) 0.5, Eos # (Auto) 0.1, Baso # (Auto) 0.1, ESR 25 H, Sodium 139, Potassium 4.1, Chloride 104, Carbon Dioxide 25, Anion Gap 14.1, BUN 21 H, Creatinine 1.00, Estimated Creat Clear 140, Estimated GFR 79, Est GFR ( Amer) 95, Glucose 111 H, Calcium 9.1, Total Bilirubin 0.8, AST 31, ALT 26, Alkaline Phosphatase 63, C-Reactive Protein 8.2 H, Total Protein 6.8, Albumin 4.3, Globulin 2.5, Albumin/Globulin Ratio 1.7 12/05/24 06:02 12/05/24 06:02 Orders (Tests/Meds): ED MEDICATIONS Discontinued Medications Generic Name Dose Route Start Last Admin Trade Name Nicolaq PRN Reason Stop Dose Admin Acetaminophen 1,000 mg 12/05/24 05:33 12/05/24 05:43 Acetaminophen 500mg Tab PO 12/05/24 05:34 1,000 mg ONCE ONE Administration Ketorolac Tromethamine 30 mg 12/05/24 05:33 12/05/24 05:42 Ketorolac 30mg/Ml Vial IM 12/05/24 05:34 30 mg ONCE ONE Administration ORDERS Category Date Time Status Knee XR left 3 views [XR knee LT 3V] Stat Exams 12/05/24 05:33 Taken POCUS Point of Care (ER Only) Stat Exams 12/05/24 05:33 Completed CBC w/Auto Diff [Complete Blood Count Auto Diff] Stat Lab 12/05/24 06:02 Completed CMP [Comprehensive Metabolic Panel] Stat Lab 12/05/24 06:02 Completed CRP [C-Reactive Protein] Stat Lab 12/05/24 06:02 Completed ESR [Erythrocyte Sedimentation Rate] Stat Lab 12/05/24 06:02 Completed Medical Decision Narrative: 49-year-old male with history of prior DVT requiring stent placement in his left lower extremity, on chronic anticoagulation, presents for atraumatic left knee pain and swelling. History was obtained via interactive discussion with patient and chart review. On arrival, patient is [afebrile, hemodynamically stable, satting appropriately, alert, oriented x4, GCS 15], moving all extremities spontaneously. Full physical exam performed and significant for no significant erythema, no obvious trauma to the knee. Patient does have some swelling in the knee and has tenderness in the anterior medial aspect. Differential includes but is not limited to musculoskeletal/ligamentous injury, DVT, gout, joint infection.. Patient was given Tylenol, Toradol for symptomatic management and correction of underlying abnormalities. Workup initiated including CBC CMP ESR CRP radiographs of the left knee, dccya-on-rxon ultrasound. Lqcnw-ih-[id number] ultrasound shows no evidence of DVT.. On re-evaluation, patient [remains afebrile, HD stable.] Laboratory workup independently interpreted by me and significant for no leukocytosis, ESR and CRP only minimally above normal. Significantly lower than his prior readings.. Imaging independently interpreted by me and significant for no evidence of acute bony injury, joint space well-preserved. See radiology read for full review of final results. Joint tap was considered, but deemed unnecessary due to no fever, no redness, unremarkable labs.. Given patient history, exam and workup, patient's presentation most likely represents atraumatic left knee pain with possible effusion. Recommend patient follow-up with PCP/Ortho for further assessment. Return precautions given. Procedures Risk/Benefits of Procedure(s) Were Explained: Yes Limited Ultrasound Indication:: Limited DVT ultrasound Indication: Limited compression ultrasonography of the left lower extremity was performed to evaluate for non-compressibility of the deep veins in the patient. The ultrasound was performed with the following indications, as noted in the H&P: Left knee pain and swelling Identified structures: Left [common femoral vein, femoral vein, popliteal vein were examined.] Findings: Lower Extremity: Left CFV: Good compressibility Left FV good compressibility Left Popliteal vein: Good compressibility Impression: Normal, no evidence of DVT Images were saved to permanent archive The study was technically adequate [id number] This study was performed by me, Cholo Christopher MD, and I personally interpreted all images/videos. Based on my clinical judgement, these images were adequate and did not necessitate further imaging. Critical Care Critical Care Time Critical Care Time: No
[2024-12-05 05:30] VITALS: BP 139/117; PULSE 85; O2SAT 97
--- NOTE | 2024-12-05 05:33 | XR_ITS ---
PROCEDURE INFORMATION: Exam: XR Left Knee Exam date and time: 12/05/2024 5:53 AM Age: 49 years old Clinical indication: Pain; Knee; Left; Additional info: Atrauamatic pain/swelling TECHNIQUE: Imaging protocol: Radiologic exam of the left knee. Views: 3 views. COMPARISON: No relevant prior studies available. FINDINGS: Bones/joints: Bones are intact with preservation of the tibiofemoral joint space. No fracture, dislocation or significant arthritic change. Soft tissues: Small to moderate joint effusion. IMPRESSION: 1. Small to moderate joint effusion. 2. No acute bony abnormality.
[2024-12-05] MEDS: KETOROLAC 30MG/ML VIAL 30 MG IM (05:42)
[2024-12-05] MEDS: ACETAMINOPHEN 500MG TAB 1000 MG PO (05:43)
--- NOTE | 2024-12-05 05:47 | PC.NURSE ---
ED provider at the bedside for POCUS
[2024-12-05 06:11] LABS: Hematocrit 39.3 % (42.0-52.0); Hemoglobin 13.3 g/dL (14.1-18.0); Immature Granulocytes % 0.2 %; Mean Corpuscular HGB Conc 33.8 g/dL (31.8-35.4); Mean Corpuscular Hemoglobin 30.8 pg (27.0-31.2); Mean Corpuscular Volume 91.0 fl (80-94); Nucleated Red Blood Cells % 0 %; Platelet Count 231 K/mm3 (142-424); Red Blood Count 4.32 M/mm3 (4.60-6.20); Red Cell Distribution Width-SD 44.8 fL; White Blood Count 5.4 K/mm3 (4.8-10.8)
[2024-12-05 06:40] LABS: Alanine Aminotransferase 26 U/L (12-78); Albumin Level 4.3 g/dl (3.5-5.0); Albumin/Globulin Ratio 1.7 (1.1-1.8); Alkaline Phosphatase 63 U/L (38-126); Anion Gap 14.1 mEq/L (5-15); Aspartate Amino Transferase 31 U/L (17-59); Bilirubin,Total 0.8 mg/dl (0.2-1.3); Blood Urea Nitrogen 21 mg/dl (9-20); Calcium 9.1 mg/dl (8.4-10.2); Carbon Dioxide 25 mmol/L (22.0-30.0); Chloride 104 mmol/L (98-107); Creatinine Clearance Estimated 140 mL/min (50-200); Creatinine,Serum 1.00 mg/dl (0.66-1.25); Estimated Glomerular Filt Rate 79 ml/min (>60); GFR (African American) 95 ML/MIN (>60); Globulin 2.5 g/dL (1.3-3.2); Glucose 111 mg/dl (74-100); Potassium 4.1 mmoL/L (3.5-5.1); Sodium 139 mmol/L (136-145); Total Protein,Serum 6.8 g/dl (6.3-8.2)
[2024-12-05 06:45] LABS: C-Reactive Protein 8.2 mg/L (0-4)
[2024-12-05 07:04] VITALS: BP 158/99; PULSE 78; RESP 14; TEMP 36.2; O2SAT 100
== END 2024-12-05 07:05 | disposition home or self-care (01) ==
PROVIDERS: Emergency Provider Emergency Medicine; PCP Internal Medicine Adolescent Medicine
DX: M25.562 Pain in left knee (principal); R22.42 Localized swelling, mass and lump, left lower limb
CPT/HCPCS: 73562; 80053; 85025; 85651; 86140; 96372; 99284; J1885

== ENCOUNTER 2024-12-25 12:45 | Outpatient (RCR) | payer MEDICAID, SELFPAY | END 2024-12-25 23:59 | disposition home or self-care (01) | LOC: PT 12:45 | PROVIDERS: Visit Provider Physician Assistant | DX: M25.362 Other instability, left knee (principal) | CPT/HCPCS: 97760 ==

== ENCOUNTER 2024-12-26 15:34 | Outpatient (CLI) | payer MEDICAID, SELFPAY ==
--- OUTSIDE RECORDS SUMMARY | 2024-12-26 15:37 | XMS_ITS | Clinical Summary ---
Author Organization Healthcare Address [address] [place] [address] Care Team Providers Care Candy Maker Name Role Phone Farrukh Flower MD Primary Care Provider [phone] Family History Medical History Relation Name Comments [...] of Treatment Not on file Care Teams Candy Maker Relationship Specialty Start Date End Date Farrukh Flower MD [address] [place] [address] PCP - General 07/10/20
--- OUTSIDE RECORDS SUMMARY | 2024-12-26 15:37 | XMS_ITS | Clinical Summary ---
Author Organization [employer] [facility] Address [address] [id number] Care Team Providers Care Internet E Commerce Specialist Name Role Phone Maria M Abel APRN Primary Care Provider [phone] Allergies No known active allergies Medications paroxetine (PAXIL) 20 MG tabletIndications :Anxiety disorder Take 1 tablet by mouth every morning. 30 tablet 1 2 Active VITAMIN B-12 2,500 mcg SublIndications:V itamin B12 deficiency Place 1 tablet under the tongue daily. 100 each 0 2 Active VITAMIN D3 5,000 unit TabIndications:Vi tamin D deficiency Take 1 tablet by mouth daily. 100 tablet 0 2 Active clonidine (CATAPRES) 0.2 MG tabletIndications :Unspecified essential hypertension Take 0.5 tablets by mouth 2 (two) times daily. 30 tablet 0 2 Active ibuprofen (ADVIL,MOTRIN) 800 MG tabletIndications :Bilateral shoulder pain Take 1 tablet by mouth 2 (two) times daily as needed for Pain. 60 tablet 1 2 Active Active Problems Problem Noted Date Diagnosed Date Unspecified essential hypertension 07/21/2011 Overview (05/31/2021): IMO May 2021 Anxiety disorder 07/21/2011 Bilateral shoulder pain 07/21/2011 Chest pain, unspecified 07/21/2011 Family History Medical History Relation Comments Alcohol abuse Brother Drug abuse Brother Alcohol abuse Father Alcohol abuse Mother Depression Mother Drug abuse Sister Relation Status Comments Brother Father Mother Sister Social History Tobacco Use Types Packs/Day Years Used Date Smoking Tobacco: Never Smokeless Tobacco: Current Chew Tobacco Cessation:Ready to Q uit: No Alcohol Use Standard Drinks/Week Comments No 0 (1 standard drink = 0.6 oz pur e alcohol) Sex and Gender Information Value Date Recorded Sex Assigned at Not on file 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 Gender Identity Not on file Sexual Orientation Not on file Last Filed Vital Signs Vital Sign Reading Time Taken Comments Blood Pressure 124/88 08/03/2011 8:01 AM CDT Pulse 68 08/03/2011 8:01 AM CDT Temperature 36.5 C (97.7 F) 07/21/2011 2:09 PM CDT Respiratory Rate - - Oxygen Saturation - - Inhaled Oxygen Concentration - - Weight 125 kg (276 lb) 07/21/2011 2:09 PM CDT Height 182.9 cm (6') 07/21/2011 2:09 PM CDT Body Mass Index 37.43 07/21/2011 2:09 PM CDT Plan of Treatment Health Maintenance Due Date Last Done Comments IMM Schedule: Varicella (1 o f 2 - 13+ 2-dose series) 1986 IMM Schedule: Diphtheria, Te tanus, and Pertussis (1 - Tdap) 1992 IMM Schedule: Hepatitis B (1 of 3 - 19+ 3-dose series) 1992 Colon Cancer Screening Colonoscopy 2018 Colon Cancer Screening FIT-D NA (Cologuard) (3 year) 2018 Colon Cancer Screening FOBT/ FIT (1 year) 2018 Colon Cancer Screening 2018 Sigmoidoscopy (5 year) Colon Cancer Screening 2018 IMM Schedule: Pneumococcal ( 50+ Years) (1 of 1 - PCV) 09/03/2023 IMM Schedule: Zoster (1 of 2) 09/03/2023 COVID-19 Vaccine ( - 2023-2 5 season) 2024 IMM Schedule: Influenza (#1) 2024 IMM Schedule: Hepatitis A Aged Out No longer eligible based on patient's age to complete this topic IMM Schedule: Meningococcal ACWY (Menhibrix/Menomune) Aged Out No longer eligible based on patient's age to complete this topic IMM Schedule: Meningococcal B Aged Out No longer eligible based on patient's age to complete this topic IMM Schedule: RSV <20 Months Aged Out No longer eligible based on patient's age to complete this topic Care Teams Internet E Commerce Specialist Relationship Specialty Start Date End Date Danhauer, Maria M T, CENA PCP - General Family Medicine 07/19/11 Additional Source Comments IMPORTANT NOTICES REGARDING PATIENT RECORDS DISCLOSED THROUGH CARE EVERYWHERE:1. If the informationreleased to you contains information about AIDs or HIVtest results, that information has been disclosed to you from records whoseconfidentiality is protected by state law ([place]RS 214.625). State law proh ibitsyou from making any further disclosure of such information relating to AIDS orHIV without the specific written consent of the person to whom such informationpertains, or as otherwise permitted by state law. A general authorization forthe release of medical or other information is NOT sufficient for this purpose.2. If the information released to you contains information about alcohol ordrug abuse diagnosis, treatment for such abuse, or referrals for treatment, andif the release was made by a program as defined in 42 CFR 2.11, thisinformation has been disclosed to you from records protected by Federalconfidentiality rules ( TheFederal rules restrict any use of the information to criminally investigate orprosecute any alcohol or drug abuse patient.3. If the information released to you contains information about a person'smental health or chemical dependency, you may not redisclose or otherwisereveal information concerning the mental health or chemical dependency of thatperson, beyond the purpose for which the disclosure was made, without firstobtaining that person's specific written consent to the redisclosure. [id number].[facility]
--- OUTSIDE RECORDS SUMMARY | 2024-12-26 15:37 | XMS_ITS | Clinical Summary ---
Author Organization [facility] Address [address] [place] [address] Phone Care Team Providers Care Director Call Center Sales Name Role Phone Unavailable Primary Care Provider Unavailabl e Allergies No known active allergies Medications buprenorphine-nal oxone (SUBOXONE) 8-2 mg SL Tablet, SublingualIndicat ions:Benign essential HTN,Chest pain at rest 9 Active diclofenac (VOLTAREN) 75 mg Oral Tablet, Delayed Release (E.C.)Indications :Acute midline low back pain without sciatica Take 1 Tab by mouth 2 times daily (with meals). 60 Tab 2 1 Active cyclobenzaprine (FLEXERIL) 5 mg Oral TabletIndications :Acute midline low back pain without sciatica TAKE 1 TAB BY MOUTH EVERY 8 HOURS NEEDED FOR MUSCLE SPASMS. *MAY CAUSE DROWSINESS* 90 Tablet 1 1 Active ELIQUIS 2.5 mg Oral TabletIndications :Venous insufficiency of both lower extremities,Chron ic deep vein thrombosis (DVT) of distal vein of left lower extremity (HCC) TAKE 1 TABLET BY MOUTH ONCE DAILY 90 Tablet 1 Active lisinopriL-hydroc hlorothiazide (PRINZIDE;ZESTORE TIC) 20-12.5 mg Oral TabletIndications :Benign essential HTN Take 1 Tablet by mouth daily. PLEASE SCHEDULE AN APPOINTMENT TO PREVENT DELAYS IN FUTURE REFILLS. 15 Tablet 1 Active traZODone (DESYREL) 150 mg Oral TabletIndications :Insomnia, persistent TAKE 1 TAB BY MOUTH NIGHTLY. 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 Continue indefinitely Long history of chronic DVT [facility] Benign essential HTN 07/06/2017 Venous insufficiency of both lower extremities 0 05/02/2017 Surgical History Surgery Date Site/Laterality Comments HIP SURGERY 02/28/2008 - 02/26/2009 two surgeries FIBULA FRACTURE SURGERY KNEE SURGERY IR ULTRASOUND GUIDED VASCULAR ACCESS 07/18/2018 IR ULTRASOUND GUIDED VASCULAR ACCESS 07/18/2018 Storm Ewing MD EDG IR Medical History Medical History Date Comments HTN (hypertension) DVT (deep venous thrombosis) (HCC) 11/2016 left leg Kidney stone Family History Medical History Relation Name Comments Heart Disease Father Cancer Mother Stroke Mother Relation Name Status Comments Father Mother Social History Tobacco Use Types Packs/Day Years Used Date Smoking Tobacco: Never Smokeless Tobacco: Current Tobacco Cessation:Ready to Q uit: No; Counseling Given: Yes Alcohol Use Standard Drinks/Week Comments Yes 0 (1 standard drink = 0.6 oz pur e alcohol) social Sex and Gender Information Value Date Recorded Sex Assigned at Not on file Legal Sex Male 11:08 PM EDT Gender Identity Not on file Sexual Orientation Not on file Last Filed Vital Signs Vital Sign Reading Time Taken Comments Blood Pressure 118/78 10/26/2020 5:59 PM EDT Pulse 82 07/30/2020 9:58 AM EDT Temperature 36.6 C (97.9 F) 10/26/2020 5:59 PM EDT Respiratory Rate 16 06/05/2020 3:15 PM EDT Oxygen Saturation 98% 07/30/2020 9:58 AM EDT Inhaled Oxygen Concentration - - Weight 114.5 kg (252 lb 6.4 oz) 10/26/2020 5:59 PM EDT Height 182.9 cm (6') 06/05/2020 3:15 PM EDT Body Mass Index 34.23 06/05/2020 3:15 PM EDT Plan of Treatment Health Maintenance Due Date Last Done Comments Annual Wellness Exam 1976 DTaP/TDaP/Td (1 - Tdap) 1992 Hepatitis B Vaccine (1 of 3 - 19+ 3-dose series) 1992 Cologuard 2018 FIT 2018 Sigmoidoscopy 2018 Virtual Colonography 2018 Colon Cancer Screening 06/09/2019 Colonoscopy 06/09/2019 06/08/2009 Pneumococcal Vaccine 50+ (1 of 1 - PCV) 09/03/2023 Zoster (1 of 2) 09/03/2023 COVID-19 Vaccine (1 - 2024-2 6 season) 2024 Influenza Vaccine (#1) 2024 8 (Declined) Meningococcal B Vaccine Aged Out No l onger eligible based on patient's age to complete this topic Goals Goal Patient Goal Type Associated Problems Recent Progress Patient-Stated? Author Blood Pressure < 140/90 Blood Pressure 118/78(2020 5:59 PM EDT) No July Marlow APRN Maintain a healthy diet, exercise regularly and maintain an ideal body weight General No Shefali Paris LPN Stay Tobacco Free Lifestyle No July Marlow APRN Medical Devices Implanted Type Area Product Tester Device Identifier Shelf Expiration Date Model / Serial / Lot Stent Wallstent 12 X 60 X 75 Endoprosthesis -07/18/2018 Implanted:Qty: 1 on 07/18/2018 by Storm Ewing MD Left: Vein [employer] 04/20/2019 [id number] / / [id number] Wallstent Unistep Plus Halo 75cm-07/18/2018 Implanted:Qty: 1 on 07/18/2018 by Storm Ewing MD Left: Vein [employer] 05/21/2020 [id number] / / [id number] Insurance SHAYLEE ENRIQUEZ MEDICAID [place] [address] [facility] [place] [id number]
--- OUTSIDE RECORDS SUMMARY | 2024-12-26 15:37 | XMS_ITS | Clinical Summary ---
Author Organization [facility] Address [address] [place] [address] Care Team Providers Care Nurse First Aid Name Role Phone Malaika El SHASHI Primary Care Provider [phone] Allergies No known active allergies Medications HM [...] 09/03/2023 ZOSTER VACCINE (1 of 2) 09/03/2023 INFLUENZA VACCINE 09/27/2024 Medical Devices Implanted Type Area Marketing Programs Manager Device Identifier Shelf Expiration Date Model / Serial / Lot Kt Seal Hemos Abs Floseal Matrx Fast/Prep 10ml - [id number] Implanted:Qty : 1 on 04/19/2021 by Arden Zuniga MD at [facility] Implant N/A: Spine Lumbar [facility] 01/09/2023 [id number] / / [id number] Description:Given to sterile field Hemost Abs Surgifoam Sz100 8x12 10mm - [id number] Implanted:Qty : 1 on 04/19/2021 by Arden Zuniga MD at [facility] Implant N/A: Spine Lumbar [employer] 04/02/2024 [id number] / / [id number] Description:Given to sterile field Care Teams Nurse First Aid Relationship Specialty Start Date End Date Malaika El APRN [address] [place] [phone] PCP - General Family Medicine 01/15/21
--- NOTE | 2024-12-26 16:15 | MR_ITS ---
PROCEDURE INFORMATION: Exam: MR Left Lower Extremity Joint Without Contrast, Knee Exam date and time: 12/26/2024 4:40 PM Age: 49 years old Clinical indication: Pain; Knee; Left; Additional info: Left knee instability, pain in front of knee TECHNIQUE: Imaging protocol: Magnetic resonance imaging of the left lower extremity joint without contrast. Exam focused on the knee. COMPARISON: CR XR KNEE LT 3V 12/05/2024 5:53 AM FINDINGS: Bones/joints: There is a small joint effusion. 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 Medial meniscus: Horizontal undersurface tear, posterior horn and body, medial meniscus, image 4/10. Lateral meniscus: The lateral meniscus is unremarkable. No tear. Anterior cruciate ligament: The anterior cruciate ligament is intact and unremarkable. Posterior cruciate ligament: Posterior cruciate ligament is intact and unremarkable. Medial capsule and supporting structures: The medial collateral ligament is normal. Lateral capsule and supporting structures: The iliotibial band is normal. The fibular collateral ligament is normal. Biceps femoris tendon is normal. Extensor mechanism of knee: The quadriceps tendon appears normal. Patellar tendon appears normal. Soft tissues: Unremarkable. Vasculature: Superficial Varicose vein of the posterior knee. IMPRESSION: 1. Horizontal tear of the medial meniscus, posterior horn and body, extending to the undersurface. 2. Degenerative changes as described.
== END 2024-12-26 23:59 | disposition home or self-care (01) ==
LOC: RAD 15:34
PROVIDERS: PCP Internal Medicine Adolescent Medicine; Visit Provider Physician Assistant
DX: S83.242A Other tear of medial meniscus, current injury, left knee, initial encounter (principal); M17.12 Unilateral primary osteoarthritis, left knee
CPT/HCPCS: 73721